=== PATIENT | female | born 1945 | race Caucasian/White ===

== ENCOUNTER 2017-04-17 16:56 | Inpatient (IN) | payer MEDICARE, BC ==
[2017-04-17 17:32] LABS: Hematocrit 38 % (35-47); Hemoglobin 12.9 g/dl (12.0-16.0); Mean Corpuscular HGB Conc 34 g/dl (31-36); Mean Corpuscular Hemoglobin 30 pg (27-31); Mean Corpuscular Volume 86 fL (80-97); Mean Platelet Volume 8 um3 (7.4-10.4); Red Blood Count 4.36 10^6/ul (4.0-5.4); Red Cell Distribution Width 13 % (10.5-15); White Blood Count 7.8 10^3/ul (3.5-10.8)
[2017-04-17] MEDS ORDERED: Ondansetron INJ* 2 MG/ML VIAL IV ONE (17:45)
--- NOTE | 2017-04-17 17:46 | RAD ---
Indication: Right-sided weakness. CT of the brain was performed without IV contrast. Comparison is made with previous exam dated March 30, 2016 Ventricular structures are midline. No midline shift is noted. The extra-axial spaces are unremarkable. Periventricular lucency consistent with chronic ischemic White matter change is noted. This is in similar extent to that seen on previous exam of March 30, 2016. No other high or low density lesion is identified. Mastoid air cells and paranasal sinuses are otherwise unremarkable. IMPRESSION: Chronic ischemic White matter change. No intracranial mass or hemorrhage is noted. No change since previous exam of March 30, 2016. Findings were discussed with Dr. Davis by telephone at 1742 hours.
[2017-04-17 17:48] LABS: Albumin 4.2 g/dL (3.2-5.2); BUN/Creatinine Ratio 19.3 (8-20); Calcium 9.4 mg/dL (8.6-10.3); EGFR African American 60.6 (>60); EGFR Non-African American 47.1 (>60); Globulin 2.9 g/dL (2-4); HDL Cholesterol 53.2 mg/dL; Potassium 3.2 mmol/L (3.5-5.0); Total Bilirubin 0.9 mg/dL (0.2-1.0); Total Protein 7.1 g/dL (6.4-8.9)
--- NOTE | 2017-04-17 17:58 | RAD ---
Indication: Neurologic symptoms. Single frontal view of the chest performed at 1740 hours was reviewed. Comparison is made with previous exam dated October 07, 2016 CT of the chest. No mediastinal shift is noted. Heart is of normal size and configuration. There is a mass in the left lung base which was previously identified on October 07, 2016. This has remained stable since August 17, 2008 and is likely a benign nodule. IMPRESSION: NO ACTIVE CARDIOPULMONARY DISEASE IS NOTED. NODULE IN THE LEFT BASE HAS BEEN PRESENT SINCE AUGUST 17, 2008 CT SCAN.
[2017-04-17] MEDS ORDERED: Aspirin TAB* 325 MG PO ONE (18:05)
--- NOTE | 2017-04-17 18:37 | ED ---
Bel Shahid Edward, scribed for Asif Davis MD on 04/17/17 at 1728 . Neurological HPI - HPI Summary HPI Summary: 71 y/o female BIBA c/o right facial droop, RUE and RLE weakness. Symptoms started at 10:00 this morning and have gradually gotten worse throughout the day , per nurse. Patient has difficulties moving her right leg at all. Patient states her neighbor noticed that the patient had difficulty speaking, but the patient was not aware of it herself. Denies vision changes. PMHx 2 CVA's. - History of Current Complaint Chief Complaint: EDNeurologicalDeficit Stated Complaint: RT SIDE WEAKNESS Time Seen by Provider: 04/17/17 17:12 Hx Obtained From: Patient Onset/Duration: Sudden Onset, Started hours ago - Started at 10:00 this morning Timing: Constant Neurological Deficit Location: Facial - right facial droop, RUE - Weakness, RLE - Difficulty moving RLE Pain Intensity: 0 Character: Motor Weakness - RLE, RUE Associated Signs and Symptoms: Positive: Impaired Speech - Per neighbor yes, although patient wasn't aware. Negative: Visual Changes - Allergy/Home Medications Allergies/Adverse Reactions: Allergies Allergy/AdvReac Type Severity Reaction Status Date / Time No Known Allergies Allergy Verified 03/30/16 15:49 Home Medications: Home Medications metFORMIN* [Glucophage 500 MG TAB *] 500 mg PO BID 04/17/17 [History Confirmed 04/17/17] PMH/Surg Hx/FS Hx/Imm Hx Previously Healthy: No Endocrine/Hematology History: Reports: Hx Diabetes Cardiovascular History: Reports: Hx Coronary Artery Disease, Hx Hypercholesterolemia, Hx Hypertension, Hx Syncope Denies: Hx Pacemaker/ICD GI History: Reports: Hx Gastroesophageal Reflux Disease Sensory History: Reports: Hx Cataracts - removed, Hx Contacts or Glasses Denies: Hx Legally Blind, Hx Macular Degeneration, Hx Deafness, Hx Hearing Aid, Hx Hearing Problem Opthamlomology History: Reports: Hx Cataracts - removed, Hx Contacts or Glasses Denies: Hx Legally Blind, Hx Macular Degeneration Neurological History: Reports: Hx Transient Ischemic Attacks (TIA) Denies: Hx Dementia, Hx Developmental Delay, Hx Headaches, Hx Migraine, Hx Nerve Disease, Hx Seizures Psychiatric History: Reports: Hx Depression Denies: Hx Panic Disorder - Surgical History Surgery Procedure, Year, and Place: CATARACT SURGERY, NECK SURGERY, APPENDECTOMY as child Hx Anesthesia Reactions: No - Immunization History Date of Tetanus Vaccine: Up to date Date of Influenza Vaccine: Fall 2012 Infectious Disease History: No Infectious Disease History: Denies: Hx Clostridium Difficile, Hx Hepatitis, Hx Human Immunodeficiency Virus (HIV), Hx of Known/Suspected MRSA, Hx Shingles, Hx Tuberculosis, History Other Infectious Disease, Traveled Outside the [place] in Last 30 Days - Family History Known Family History: Positive: Cardiac Disease, Other - cancer, GI bleed - Social History Alcohol Use: None Alcohol Amount: Quit 20 years ago Substance Use Type: Reports: None Smoking Status (MU): Former Smoker Type: Cigarettes Amount Used/How Often: 3-4 PPD Length of Time of Smoking/Using Tobacco: 20 years Have You Smoked in the Last Year: No Review of Systems Constitutional: Negative Eyes: Negative Negative: Blurred Vision ENT: Negative Cardiovascular: Negative Respiratory: Negative Gastrointestinal: Negative Genitourinary: Negative Musculoskeletal: Negative Skin: Negative Neurological: Other - right facial droop Positive: Weakness - RLE and RUE weakness, Slurred Speech - Neighbor said yes, patient wasn't aware Psychological: Normal All Other Systems Reviewed And Are Negative: Yes Physical Exam Triage Information Reviewed: Yes Vital Signs On Initial Exam: Initial Vitals Temp Pulse Resp BP Pulse Ox 97.3 F 85 28 224/191 98 04/17/17 17:15 04/17/17 17:15 04/17/17 17:15 04/17/17 17:15 04/17/17 17:15 Vital Signs Reviewed: Yes Appearance: Positive: Well-Appearing, No Pain Distress, Well-Nourished Skin: Positive: Warm, Skin Color Reflects Adequate Perfusion, Dry Head/Face: Positive: Normal Head/Face Inspection Eyes: Positive: Normal, EOMI, JESENIA ENT: Positive: Normal ENT inspection Neck: Positive: Supple, Nontender Respiratory/Lung Sounds: Positive: Clear to Auscultation, Breath Sounds Present Cardiovascular: Positive: RRR Abdomen Description: Positive: Nontender, Soft Bowel Sounds: Positive: Present Musculoskeletal: Positive: Normal, Strength/ROM Intact Neurological: Positive: Alert, Oriented to Person Place, Time, Facial Droop - Right facial droop, Pronator Drift Present - Right arm drift, Other - R leg effort against gravity, can't orange picker off stretcher. No sensation deficit Psychiatric: Positive: Normal, Affect/Mood Appropriate Diagnostics - Vital Signs Vital Signs Temp Pulse Resp BP Pulse Ox 04/17/17 17:15 97.3 F 85 28 224/191 98 - Laboratory Lab Results: Lab Results 04/17/17 04/17/17 04/17/17 Range/Units 17:21 17:21 17:21 WBC 7.8 (3.5-10.8) 10^3/ul RBC 4.36 (4.0-5.4) 10^6/ul Hgb 12.9 (12.0-16.0) g/dl Hct 38 (35-47) % MCV 86 (80-97) fL MCH 30 (27-31) pg MCHC 34 (31-36) g/dl RDW 13 (10.5-15) % Plt Count 243 (150-450) 10^3/ul MPV 8 (7.4-10.4) um3 Neut % (Auto) 71.8 (38-83) % Lymph % (Auto) 20.9 L (25-47) % Mcduffie % (Auto) 5.1 (1-9) % Eos % (Auto) 0.8 (0-6) % Baso % (Auto) 1.4 (0-2) % Absolute Neuts (auto) 5.6 (1.5-7.7) 10^3/ul Absolute Lymphs (auto) 1.6 (1.0-4.8) 10^3/ul Absolute Monos (auto) 0.4 (0-0.8) 10^3/ul Absolute Eos (auto) 0.1 (0-0.6) 10^3/ul Absolute Basos (auto) 0.1 (0-0.2) 10^3/ul Absolute Nucleated RBC 0 10^3/ul Nucleated RBC % 0 INR (Anticoag Therapy) 0.87 L (0.89-1.11) APTT 30.5 (26.0-36.3) seconds Sodium 133 (133-145) mmol/L Potassium 3.2 L (3.5-5.0) mmol/L Chloride 97 L (101-111) mmol/L Carbon Dioxide 23 (22-32) mmol/L Anion Gap 13 H (2-11) mmol/L BUN 22 (6-24) mg/dL Creatinine 1.14 H (0.51-0.95) mg/dL Est GFR ( Amer) 60.6 (>60) Est GFR (Non-Af Amer) 47.1 (>60) BUN/Creatinine Ratio 19.3 (8-20) Glucose 166 H (70-100) mg/dL Lactic Acid (0.5-2.0) mmol/L Calcium 9.4 (8.6-10.3) mg/dL Total Bilirubin 0.90 (0.2-1.0) mg/dL AST 16 (13-39) U/L ALT 13 (7-52) U/L Alkaline Phosphatase 50 (34-104) U/L Troponin I 0.00 (<0.04) ng/mL Total Protein 7.1 (6.4-8.9) g/dL Albumin 4.2 (3.2-5.2) g/dL Globulin 2.9 (2-4) g/dL Albumin/Globulin Ratio 1.4 (1-3) Triglycerides 119 mg/dL Cholesterol 150 mg/dL LDL Cholesterol 73 mg/dL HDL Cholesterol 53.2 mg/dL Blood Type Antibody Screen 04/17/17 04/17/17 Range/Units 17:21 17:21 WBC (3.5-10.8) 10^3/ul RBC (4.0-5.4) 10^6/ul Hgb (12.0-16.0) g/dl Hct (35-47) % MCV (80-97) fL MCH (27-31) pg MCHC (31-36) g/dl RDW (10.5-15) % Plt Count (150-450) 10^3/ul MPV (7.4-10.4) um3 Neut % (Auto) (38-83) % Lymph % (Auto) (25-47) % Mcduffie % (Auto) (1-9) % Eos % (Auto) (0-6) % Baso % (Auto) (0-2) % Absolute Neuts (auto) (1.5-7.7) 10^3/ul Absolute Lymphs (auto) (1.0-4.8) 10^3/ul Absolute Monos (auto) (0-0.8) 10^3/ul Absolute Eos (auto) (0-0.6) 10^3/ul Absolute Basos (auto) (0-0.2) 10^3/ul Absolute Nucleated RBC 10^3/ul Nucleated RBC % INR (Anticoag Therapy) (0.89-1.11) APTT (26.0-36.3) seconds Sodium (133-145) mmol/L Potassium (3.5-5.0) mmol/L Chloride (101-111) mmol/L Carbon Dioxide (22-32) mmol/L Anion Gap (2-11) mmol/L BUN (6-24) mg/dL Creatinine (0.51-0.95) mg/dL Est GFR ( Amer) (>60) Est GFR (Non-Af Amer) (>60) BUN/Creatinine Ratio (8-20) Glucose (70-100) mg/dL Lactic Acid 1.8 (0.5-2.0) mmol/L Calcium (8.6-10.3) mg/dL Total Bilirubin (0.2-1.0) mg/dL AST (13-39) U/L ALT (7-52) U/L Alkaline Phosphatase (34-104) U/L Troponin I (<0.04) ng/mL Total Protein (6.4-8.9) g/dL Albumin (3.2-5.2) g/dL Globulin (2-4) g/dL Albumin/Globulin Ratio (1-3) Triglycerides mg/dL Cholesterol mg/dL LDL Cholesterol mg/dL HDL Cholesterol mg/dL Blood Type A Positive Antibody Screen Negative Result Diagrams: 04/17/17 17:21 04/17/17 17:21 Lab Statement: Any lab studies that have been ordered have been reviewed, and results considered in the medical decision making process. - Radiology CHEST XRAY Xray Interpretation: No Acute Changes - NO ACTIVE CARDIOPULMONARY DISEASE IS NOTED. NODULE IN THE LEFT BASE HAS BEEN PRESENT SINCE AUGUST 17, 2008 CT SCAN. Radiology Interpretation Completed By: Radiologist - CT BRAIN CT CT Interpretation: Positive (See Comments) - Chronic ischemic White matter change. No intracranial mass or hemorrhage is noted. No change since previous exam of March 30, 2016. Findings were discussed with Dr. Davis by telephone at [address] Interpretation Completed By: Radiologist Course/Dx - Course Course Of Treatment: NO CRITICAL CARE TIME. DISCUSSED WITH DR AYALA, NEUROLOGY. ADMIT HOSPITALIST STABLE. - Diagnoses Provider Diagnoses: CVA (cerebral vascular accident) Discharge - Discharge Plan Condition: Stable Disposition: ADMITTED TO [facility] Referrals: Key Diaz MD [Primary Care Provider] - The documentation as recorded by the Bel gaffney Edward accurately reflects the service I personally performed and the decisions made by me, Asif Davis MD.
[2017-04-17] MEDS ORDERED: Dextrose 50% Syringe 50 ML* 25 GM/50 ML SYRINGE IV PUSH PRN (18:41)
[2017-04-17] MEDS ORDERED: Iodixanol* (CONTRAST) 320 MG/ML 100 ML SDV IV ONE (18:42)
[2017-04-17] MEDS ORDERED: Acetaminophen TAB* 325 MG PO PRN (18:46)
[2017-04-17] MEDS ORDERED: Potassium Chlor TAB* 20 MEQ TAB.ER PO ONE (18:49)
[2017-04-17] MEDS ORDERED: NS 0.9% 1000 ML* 1,000 ML IV SCH (19:00)
--- NOTE | 2017-04-17 20:02 | RAD ---
Indication: Stroke. Contrast: Administered 79.9 ml of VISAPAQUE 320 mgi/ml CTA of the neck and head was performed after IV contrast administration. Coronal and sagittal 3-D reconstructive images were obtained. The origins of the great vessels are unremarkable. The common carotid arteries bilaterally demonstrates no evidence of intimal wall thickening. Densely calcified right proximal internal carotid artery is noted. This is approximately 50%. Densely calcified left internal carotid artery is noted at its origin of approximately 60 %. The remainder of the internal carotid artery demonstrates no significant stenosis. No evidence of carotid artery dissection is noted. The intracranial portions of the internal carotid artery demonstrates calcification in the intracavernous portions. The anterior and middle cerebral arteries are unremarkable. No branch occlusion is identified. Basilar artery and vertebral arteries are unremarkable. No aneurysmal dilatation or branch occlusion is noted. Inferior thyroid lobes are unremarkable. Soft tissues of the neck are unremarkable. Scattered lymph nodes are noted. IMPRESSION: DENSELY CALCIFIED PLAQUE IS NOTED AT THE ORIGINS OF BOTH INTERNAL CAROTID ARTERIES. THE RIGHT INTERNAL CAROTID ARTERY DEMONSTRATES APPROXIMATE 50% STENOSIS. THE LEFT INTERNAL CAROTID ARTERY DEMONSTRATES APPROXIMATELY 60% STENOSIS. ATHEROSCLEROSIS IS NOTED OF THE INTRACAVERNOUS PORTIONS OF THE INTERNAL CAROTID ARTERIES. NO BRANCH OCCLUSION OR ANEURYSMAL DILATATION IS NOTED.
[2017-04-17] MEDS ORDERED: LORazepam INJ* 2 MG/ML 1 ML VIAL IV PUSH ONE (20:39)
--- NOTE | 2017-04-17 22:03 | RAD ---
Indication: Stroke, right-sided weakness. Image sequences: Sagittal and axial T1, axial T2, FLAIR, diffusion and susceptibility weighted images of the brain were obtained. Ventricular structures are midline. No midline shift is noted. Central and cortical atrophy is noted. Periventricular signal abnormalities consistent with chronic ischemic White matter change is noted. There is a focal area of restriction of diffusion in the posterior limb of the left internal capsule consistent with lacunar infarct. Motion artifact degrades the images. Fluid is noted in the mastoid air cells on the left. Mild gliosis is noted in the pontine region. IMPRESSION: Acute lacunar infarct involving the posterior limb of left internal capsule. Chronic ischemic White matter change is noted. Central and cortical atrophy. Motion artifact degrades the images.
[2017-04-17] MEDS: Atorvastatin* 40 MG TAB PO SCH (23:06)
[2017-04-17] MEDS: Insulin LISPRO* 1 UNITS UNIT SUBCUT SCH (23:07)
[2017-04-17] MEDS: Heparin VIAL(*) 5000 UNITS/ML VIAL (FIVE THOUSAND) SUBCUT SCH (23:24)
--- NOTE | 2017-04-18 02:25 | HP ---
CC: Dr. Ariana Sidhu; Dr. Acuna * HISTORY AND PHYSICAL: DATE OF ADMISSION: 04/17/17 PRIMARY CARE PROVIDER: Dr. Ariana Sidhu from [place]. CHIEF COMPLAINT: Right-sided weakness. HISTORY OF PRESENT ILLNESS: Ms. Girard is a 71-year-old female with history of dyslipidemia, diabetes, who presented to the hospital complaining of right- sided weakness that occurred at approximately 10 a.m. in the morning. The patient arrived to our ER at approximately 5 p.m. with right-sided weakness. She appears to have had an ischemic left hemispheric stroke and she is going to be admitted with a diagnosis of CVA to telemetry monitored floor. PAST MEDICAL HISTORY: Include: 1. History of TIA in March 2016, when she was advised to take aspirin and signed out against medical advice. At this point, she did not continue to take aspirin. 2. History of appendectomy. 3. History of cataract surgery. 4. Hypertension. 5. Diabetes. 6. Dyslipidemia. 7. Coronary artery disease. 8. Status post laparoscopic cholecystectomy for acute cholecystitis in September of 2016. MEDICATIONS: Include: 1. Metformin 500 mg b.i.d. 2. Effexor XR 75 mg daily. 3. Omeprazole 20 mg daily. 4. Lisinopril with hydrochlorothiazide 1 tablet daily. 5. Atorvastatin 40 mg daily. 6. Aspirin, although it is outpatient medication and she is not taking. 7. Acetaminophen on a p.r.n. basis. ALLERGIES: No known drug allergies. FAMILY HISTORY: Positive for mother who at the age of 49 secondary to GI bleed. SOCIAL HISTORY: The patient has a history of former alcoholism and tobacco abuse and quit both over 20 years ago. She denies any drug use. She is retired and lives alone. She is fully independent with ADLs and ambulates without any problems. Her friend, Cici Kelley, from [place], [place], with phone number is her surrogate. REVIEW OF SYSTEMS: Please see history of present illness. The patient stated that she had been in her usual state of health and she woke up today in the morning feeling fine. She stated that she fed the dogs and approximately 10 a.m., she developed right-sided weakness. She stated that she felt that she had to "drag her right leg." She denies any headache or double vision. I am unsure why she came to the hospital so late in the day. The patient stated that she took 2 baby aspirins prior to arrival to the hospital, but usually she does not use aspirin on a daily basis. All the remaining 14 systems were reviewed with the patient and were otherwise negative. PHYSICAL EXAMINATION GENERAL: The patient is a pleasant 71-year-old female who is in no acute distress. Alert, awake, and oriented x3. VITAL SIGNS: Blood pressure of 187/96, heart rate of 73 and regular, respiratory rate of 26, oxygen saturation 90% on room air, temperature of 97.3. HEENT: Head: Atraumatic, normocephalic. Eyes: Pupils equal, reactive to light and accommodation. Oropharynx clear. Mucosa moist. NECK: Supple. No JVD, no bruit bilaterally. RESPIRATORY: Clear to auscultation bilaterally. CARDIOVASCULAR: Regular rate and rhythm. No murmur. ABDOMEN: Soft, nontender. Bowel sounds present in all 4 quadrants. EXTREMITIES: There is no edema. Pulses are +2 bilaterally. No clubbing or cyanosis. NEUROLOGIC: The patient has flattening of right nasolabial fold. Her speech is clear. Otherwise, cranial nerves are unremarkable. Motor strength is diminished in the right lower and right upper extremities. The patient had significant right pronator drift. She also has right leg weakness. Motor strength in the left upper and left lower extremities is 5/5. The right upper extremity muscle strength is at 4+/5 and it is distally weaker and the right lower extremity is also 4/5, weaker distally. The patient is able to raise her leg off bed by approximately 10 degrees only for approximately 3 seconds before falling down. There are no sensation deficits. SKIN: No ecchymotic areas or rashes noted. DIAGNOSTIC STUDIES/LAB DATA: Sodium of 132, potassium 3.2, chloride 97, carbon dioxide 23, BUN 22, creatinine 1.14. Liver functions were unremarkable. LDL cholesterol 73. CBC: White blood cell count of 7.8, hemoglobin of 12.9, hematocrit of 38, and platelets of 243. The patient's EKG showed normal sinus rhythm with a heart rate of 75 beats per minute with possibility of old inferior infarct. CT of the brain, impression: "Chronic ischemic white matter change. No intracranial mass or hemorrhage is noted. No change since previous exam of 02/09." Portable chest x-ray, impression: "No active cardiopulmonary disease noted. Nodule in the left base has been present since 08/17/08 CT exam." ASSESSMENT AND PLAN: A 71-year-old female, who has a history of transient ischemic attack in 2016 and was supposed to be on aspirin, but she had not been taking regularly. Now, she presents with right-sided weakness that lasted for several hours prior to her observation to the ED. 1. Ischemic cerebrovascular accident. The patient most likely had ischemic cerebrovascular accident. She has mild right-sided facial droop and right- sided weakness. She is going to be admitted to telemetry monitored bed with neuro checks every 2 hours. Her aspirin is going to be started. Physical Therapy and Occupational Therapy are going to evaluate the patient. Nursing dysphagia screen is already ordered. An MRI of the brain is going to be obtained today as well as CT angiogram of the head and neck. Transthoracic echocardiogram with bowel studies is going to be ordered. Dr. Acuna is going to be asked to see the patient in consult. 2. In regards to patient's hypertension, currently, the patient's systolic pressures are in the 180's. At this point, we will treat as permissive hypertension and will stop the patient's Zestoretic. 3. In regards to dyslipidemia, the patient's lipid profile shows LDL of 73. At this point, we will continue her atorvastatin 40 mg daily. 4. In regards to the patient's diabetes, hemoglobin A1c is going to be obtained. The patient is going to be placed on a sliding scale and metformin is going to be held while in the hospital. 5. For DVT prophylaxis, the patient is at moderate risk and she is going to be placed on heparin subcutaneously. 6. The patient has history of chronic kidney disease, stage 2 to 3. Her creatinine is basically at baseline, but due to her acute ischemic infarct, I will place her on gentle intravenous hydration for total of 1 L. 7. The patient's code status is full and her surrogate is her friend, Cici, as mentioned above. TIME SPENT: Approximately 65 minutes was spent on admission of this patient, more than half that time was spent [id number] with the patient during the interview and physical exam. [id number]/[facility] #: [id number] [facility]OSPITALFelipa
[2017-04-18 05:17] LABS: BUN/Creatinine Ratio 15.4 (8-20); EGFR African American 55.5 (>60); EGFR Non-African American 43.2 (>60); Potassium 3.5 mmol/L (3.5-5.0)
[2017-04-18] MEDS: Heparin VIAL(*) 5000 UNITS/ML VIAL (FIVE THOUSAND) SUBCUT SCH ×3 (06:25→20:57)
[2017-04-18] MEDS: Insulin LISPRO* 1 UNITS UNIT SUBCUT SCH ×4 (08:24→20:54)
[2017-04-18] MEDS: Venlafaxine EXT RELEASE CAP* 75 MG PO SCH (08:27)
[2017-04-18] MEDS: Omeprazole CAP* 20 MG PO SCH (08:27)
[2017-04-18] MEDS: Aspirin Low Dose CHEW TAB* 81 MG PO SCH (08:27)
[2017-04-18 08:33] LABS: Urine Bilirubin Negative (Negative); Urine Glucose Negative (Negative); Urine Nitrite Negative (Negative)
--- NOTE | 2017-04-18 13:39 | ECHO ---
Patient: GUERLINE ROJO [facility] Rec#: [id number] : 1945 Date: 04/18/2017 Age: 71y Height: 172.72 cm / 68.0 in Weight: 61.23 kg / 135.0 lbs Sex: F BSA: 1.73 Room#: [facility] Admit Date#: 04/17/2017 Type: Inpatient Referring: Judit Cruz MD Reading: Chiki Britt MD Board Liner Operator: Kellie Arce RDCS CC: Key Diaz MD Transthoracic Echocardiogram Indication: CVA BP: 149/78 HR: 74 Rhythm: NSR Indications Cerebrovascular Disease Findings History: TIA '16, HTN, DM, CAD, HLD, former smoker. Technical Comments: The study quality is fair. The study is technically limited due to poor parasternal windows. Left Ventricle: The left ventricular chamber size is normal. There is increased basal septal hypertrophy noted without evidence of an increased gradient across the left ventricular outflow tract. Global left ventricular wall motion and contractility are within normal limits. There is normal left ventricular systolic function. The estimated ejection fraction is 60-65%. Abnormal left ventricular diastolic filling is observed, consistent with impaired relaxation. Left Atrium: The left atrium is mildly dilated. Right Ventricle: Moderator Band present. The right ventricular cavity size is normal. The right ventricular global systolic function is normal. Right Atrium: The right atrium is mildly dilated. A patent foramen ovale is visualized. which appears to be small in size. A patent foramen ovale is demonstrated by color Doppler and agitated contrast. There is evidence of an atrial septal aneurysm. Aortic Valve: The aortic valve structure is not well visualized. The aortic valve is trileaflet. The aortic valve leaflets are mildly thickened. There is no evidence of aortic regurgitation. There is no evidence of aortic stenosis. Mitral Valve: There is mitral annular calcification. The mitral valve leaflets are moderately thickened. There is a trace of mitral regurgitation. Tricuspid Valve: The tricuspid valve leaflets are mildly thickened. There is trace tricuspid regurgitation. No pulmonary hypertension is noted. Pulmonic Valve: The pulmonic valve appears normal. There is no evidence of pulmonic regurgitation. There is no pulmonic stenosis. Pericardium: There is no significant pericardial effusion. Aorta: There is mild dilatation of the ascending aorta. There is no dilatation of the aortic arch. There is no dilation of the aortic root. Pulmonary Artery: The main pulmonary artery is not well visualized. Venous: The inferior vena cava appears normal in size. There is a greater than 50% respiratory change in the inferior vena cava dimension. Contrast: Normal saline was used as contrast for the bubble study. Intravenous contrast was used to help determine presence of intracardiac shunting. Images 1 and 2. Conclusions There is normal left ventricular systolic function. The estimated ejection fraction is 60-65%. Global left ventricular wall motion and contractility are within normal limits. The left ventricular chamber size is normal. Abnormal left ventricular diastolic filling is observed, consistent with impaired relaxation. The left atrium is mildly dilated. The right atrium is mildly dilated. Functionally benign heart valves. There is mild dilatation of the ascending aorta. A small sized patent foramen ovale is visualized. Measurements Name Value Normal Range RVIDd (AP) 2D 2.9 cm (0.9 - 2.6) RVDdMajor (2D) 2.9 cm (2.2 - 4.4) RAd ISD 4CH 5.1 cm (3.4 - 4.9) RA (A4C)W 2.9 cm (2.9 - 4.6) IVSd (2D) 1.1 cm (0.6 - 1) LVPWd (2D) 1.1 cm (0.6 - 1) LVIDd (2D) 4.4 cm (3.6 - 5.4) LVIDs (2D) 3 cm - LV FS (2D) 32 % (25 - 45) Aortic Annulus 2 cm (1.4 - 2.6) Ao root diameter (2D) 2.9 cm (2.1 - 3.5) Ascending Ao 3.5 cm (2.1 - 3.4) Aortic arch 2.9 cm (1.8 - 3.4) LA dimension (AP) 2D 3.2 cm (2.3 - 3.8) LAd ISD 4CH 5.4 cm (2.9 - 5.3) LA ISD 4CH W 4.6 cm (2.5 - 4.5) Name Value Normal Range LA ESV SP 4CH (A/L) 63 ml - LA ESV SP 2CH (A/L) 58 ml - LA ESV BP (A/L) 62 ml - LA ESV BP (A/L) index 36 ml/m2 - LA ESV SP 4CH (MOD) 57 ml - LA ESV SP 2CH (MOD) 52 ml - Name Value Normal Range MV E-wave Vmax 0.6 m/sec - MV deceleration time 189 msec - MV A-wave Vmax 1.03 m/sec - MV E:A ratio 0.6 ratio - LV septal e' Vmax 0.05 m/sec - LV lateral e' Vmax 0.07 m/sec - LV E:e' septal ratio 12 ratio - LV E:e' lateral ratio 8.57 ratio - Name Value Normal Range AV Vmax 1.5 m/sec - AV VTI 30 cm - AV peak gradient 9.07 mmHg - AV mean gradient 4.28 mmHg - LVOT Vmax 1.02 m/sec - LVOT VTI 20.03 cm - LVOT peak gradient 4.18 mmHg - LVOT mean gradient 2.38 mmHg - ADITYA Vmax 0.51 m/sec - Name Value Normal Range TR Vmax 2.45 m/sec - TR peak gradient 24 mmHg - RAP 3 mmHg - RVSP 27 mmHg - IVC diameter 1.9 cm - Name Value Normal Range PV Vmax 0.86 m/sec - PV peak gradient 2.96 mmHg -
--- NOTE | 2017-04-18 15:39 | PN ---
Subjective Date of Service: 04/18/17 Interval History: Has no complaints today. Denies weakness. No LEYVA, blurry vision, CP/SOB Objective Active Medications: Acetaminophen (Tylenol Tab*) 650 mg PO Q4H PRN PRN Reason: FEVER/PAIN Aspirin (Aspirin Low Dose Tab*) 81 mg PO DAILY [facility] Last Admin: 04/18/17 08:27 Dose: 81 mg Atorvastatin Calcium (Lipitor*) 40 mg PO 2100 [facility] Last Admin: 04/17/17 23:06 Dose: 40 mg Dextrose (D50w Syringe 50 Ml*) 12.5 gm IV PUSH .FOR FS < 60 - SS PRN PRN Reason: FS < 60 Heparin Sodium (Porcine) (Heparin Vial(*)) 5,000 units SUBCUT Q8HR [facility] Last Admin: 04/18/17 13:59 Dose: 5,000 units Sodium Chloride (Ns 0.9% 1000 Ml*) 1,000 mls @ 125 mls/hr IV PER RATE [facility] Last Admin: 04/17/17 23:14 Dose: 125 mls/hr Insulin Human Lispro (Humalog*) 0 units SUBCUT ACHS [facility] PRN Reason: Protocol Last Admin: 04/18/17 12:25 Dose: 1 units Metformin HCl (Glucophage*) 1,000 mg PO DAILY [facility] Omeprazole (Prilosec Cap*) 20 mg PO DAILY@0730 [facility] Last Admin: 04/18/17 08:27 Dose: 20 mg Venlafaxine HCl (Effexor Xr Cap*) 75 mg PO DAILY WITH MEAL [facility] Last Admin: 04/18/17 08:27 Dose: 75 mg Vital Signs 04/18/17 11:06 Temperature 97.9 F Pulse Rate 70 Respiratory 16 Rate Blood Pressure 153/83 (mmHg) O2 Sat by Pulse 100 Oximetry Oxygen Devices in Use Now: None Appearance: NAD, sitting in chair, Eyes: No Scleral Icterus, PERRLA Ears/Nose/Mouth/Throat: Clear Oropharnyx, Mucous Membranes Moist Neck: NL Appearance and Movements; NL JVP, Trachea Midline Respiratory: Symmetrical Chest Expansion and Respiratory Effort Cardiovascular: NL Sounds; No Murmurs; No JVD, RRR Abdominal: NL Sounds; No Tenderness; No Distention, No Hepatosplenomegaly Lymphatic: No Cervical Adenopathy Extremities: No Edema, No Clubbing, Cyanosis Neurological: Alert and Oriented x 3, - - 5/5 strength throughout, CN2-12 intact , sensation intact Result Diagrams: 04/17/17 17:21 04/18/17 04:32 Additional Lab and Data: Lab Results 04/17/17 04/17/17 04/17/17 Range/Units 17:21 17:21 17:21 WBC 7.8 (3.5-10.8) 10^3/ul RBC 4.36 (4.0-5.4) 10^6/ul Hgb 12.9 (12.0-16.0) g/dl Hct 38 (35-47) % MCV 86 (80-97) fL MCH 30 (27-31) pg MCHC 34 (31-36) g/dl RDW 13 (10.5-15) % Plt Count 243 (150-450) 10^3/ul MPV 8 (7.4-10.4) um3 Neut % (Auto) 71.8 (38-83) % Lymph % (Auto) 20.9 L (25-47) % [place] % (Auto) 5.1 (1-9) % Eos % (Auto) 0.8 (0-6) % Baso % (Auto) 1.4 (0-2) % Absolute Neuts (auto) 5.6 (1.5-7.7) 10^3/ul Absolute Lymphs (auto) 1.6 (1.0-4.8) 10^3/ul Absolute Monos (auto) 0.4 (0-0.8) 10^3/ul Absolute Eos (auto) 0.1 (0-0.6) 10^3/ul Absolute Basos (auto) 0.1 (0-0.2) 10^3/ul Absolute Nucleated RBC 0 10^3/ul Nucleated RBC % 0 INR (Anticoag Therapy) 0.87 L (0.89-1.11) APTT 30.5 (26.0-36.3) seconds Sodium 133 (133-145) mmol/L Potassium 3.2 L (3.5-5.0) mmol/L Chloride 97 L (101-111) mmol/L Carbon Dioxide 23 (22-32) mmol/L Anion Gap 13 H (2-11) mmol/L BUN 22 (6-24) mg/dL Creatinine 1.14 H (0.51-0.95) mg/dL Est GFR ( Amer) 60.6 (>60) Est GFR (Non-Af Amer) 47.1 (>60) BUN/Creatinine Ratio 19.3 (8-20) Glucose 166 H (70-100) mg/dL Lactic Acid (0.5-2.0) mmol/L Calcium 9.4 (8.6-10.3) mg/dL Total Bilirubin 0.90 (0.2-1.0) mg/dL AST 16 (13-39) U/L ALT 13 (7-52) U/L Alkaline Phosphatase 50 (34-104) U/L Troponin I 0.00 (<0.04) ng/mL Total Protein 7.1 (6.4-8.9) g/dL Albumin 4.2 (3.2-5.2) g/dL Globulin 2.9 (2-4) g/dL Albumin/Globulin Ratio 1.4 (1-3) Triglycerides 119 mg/dL Cholesterol 150 mg/dL LDL Cholesterol 73 mg/dL HDL Cholesterol 53.2 mg/dL Blood Type Antibody Screen 04/17/17 04/17/17 Range/Units 17:21 17:21 WBC (3.5-10.8) 10^3/ul RBC (4.0-5.4) 10^6/ul Hgb (12.0-16.0) g/dl Hct (35-47) % MCV (80-97) fL MCH (27-31) pg MCHC (31-36) g/dl RDW (10.5-15) % Plt Count (150-450) 10^3/ul MPV (7.4-10.4) um3 Neut % (Auto) (38-83) % Lymph % (Auto) (25-47) % [place] % (Auto) (1-9) % Eos % (Auto) (0-6) % Baso % (Auto) (0-2) % Absolute Neuts (auto) (1.5-7.7) 10^3/ul Absolute Lymphs (auto) (1.0-4.8) 10^3/ul Absolute Monos (auto) (0-0.8) 10^3/ul Absolute Eos (auto) (0-0.6) 10^3/ul Absolute Basos (auto) (0-0.2) 10^3/ul Absolute Nucleated RBC 10^3/ul Nucleated RBC % INR (Anticoag Therapy) (0.89-1.11) APTT (26.0-36.3) seconds Sodium (133-145) mmol/L Potassium (3.5-5.0) mmol/L Chloride (101-111) mmol/L Carbon Dioxide (22-32) mmol/L Anion Gap (2-11) mmol/L BUN (6-24) mg/dL Creatinine (0.51-0.95) mg/dL Est GFR ( Amer) (>60) Est GFR (Non-Af Amer) (>60) BUN/Creatinine Ratio (8-20) Glucose (70-100) mg/dL Lactic Acid 1.8 (0.5-2.0) mmol/L Calcium (8.6-10.3) mg/dL Total Bilirubin (0.2-1.0) mg/dL AST (13-39) U/L ALT (7-52) U/L Alkaline Phosphatase (34-104) U/L Troponin I (<0.04) ng/mL Total Protein (6.4-8.9) g/dL Albumin (3.2-5.2) g/dL Globulin (2-4) g/dL Albumin/Globulin Ratio (1-3) Triglycerides mg/dL Cholesterol mg/dL LDL Cholesterol mg/dL HDL Cholesterol mg/dL Blood Type A Positive Antibody Screen Negative Assess/Plan/Problems-Billing Assessment: 71 F p/w right sided weakness found with left internal capsule CVA - Patient Problems (1) CVA (cerebral vascular accident) Comment: Lacunar, suspect in setting of HTN especially based on presenting BP Pt confirmed she was not taking ASA Start ASA TTE pending Secondary risk factor modification - -HTN-permissive today -DM2- increase metformin to 1000mg daily -HLD-continue statin -summer camp counselor exercise (2) Chronic kidney disease Comment: NS trend (3) HLD (hyperlipidemia) Comment: lipitor 40mg (4) HTN (hypertension) Comment: permissive HTN until tomorrow (5) Type 2 diabetes mellitus Comment: Reports history of hypoglycemia after which meds were decreased increase metformin from 500 to 100mg daily. c/w ISS (6) DVT prophylaxis Comment: SQ Heparin
--- NOTE | 2017-04-18 16:24 | CONS ---
NEUROLOGY CONSULTATION: DATE OF CONSULT: 04/18/17 REFERRING PHYSICIAN: Judit Cruz MD REASON FOR CONSULT: Stroke. HISTORY OF PRESENT ILLNESS: Annika Girard is a 71-year-old woman with history of diabetes, hypertension, and TIA in the past who presented subacutely yesterday to the emergency department with right-sided weakness that had started that morning. She reports that around 10 a.m., she developed right leg weakness and did not think much of it because she did not have a headache. Later in the afternoon, she also developed right arm weakness and her leg became so weak that she needed to hold on to the wall to get into her bedroom. She then presented to the emergency department, was noted to have right facial weakness as well. She thinks her speech may have been slurred, but this was told to her by an observer and she did not notice it herself. She has previously had a TIA, which she says presented with difficulty speaking and a headache. Since she arrived out of the 4- 1/2 hour window, she was not considered a candidate for TPA. She was admitted to the hospital for stroke workup and her MRI scan showed a small lacunar infarction in the posterior limb of the left internal capsule. Today, Mrs. Girard is essentially asymptomatic. She reports her leg and arm are working much better and she notices no facial weakness. She has been ambulating around the room without difficulty. There has been some confusion as to whether she takes aspirin at home, but she indicates to me that she was not taking aspirin and has only been taking it since she has been admitted here. She reports that she eats ice cream on a nearly nightly basis. She does not routinely check her blood sugars at home, though her family physician has advised that she do so. She also does not check her blood pressure outside the healthcare setting. PAST MEDICAL HISTORY: 1. TIA in March 2016. 2. Hypertension. 3. Diabetes. 4. Hyperlipidemia. 5. Coronary artery disease. 6. Appendectomy. 7. Cataract surgery. 8. Laparoscopic cholecystectomy. HOME MEDICATIONS: 1. Tylenol 650 mg q.4 hours p.r.n. 2. Metformin 500 mg b.i.d. 3. Lisinopril/hydrochlorothiazide 20/12.5 mg daily. 4. Atorvastatin 40 mg daily. 5. Venlafaxine 75 mg daily. 6. Omeprazole 20 mg daily. ALLERGIES: No known drug allergies. FAMILY HISTORY: Mother at age 49 of a GI bleed. SOCIAL HISTORY: She is a former alcoholic and used to smoke, but quit both over 20 years ago. She lives alone. REVIEW OF SYSTEMS: As per the HPI, otherwise negative. PHYSICAL EXAM: Vital Signs: Temperature 97.9, blood pressure 153/83, heart rate 70, oxygen saturation 100% on room air. I note that when she was first in the ER on arrival, her blood pressure was measured at 224/191. Review of telemetry shows no evidence of atrial fibrillation. On general examination, she is a very pleasant woman in no acute distress. Her heart is in a regular rate and rhythm. There are no carotid bruits. Lungs are clear to auscultation bilaterally. On neurologic examination, she is fully awake, alert, and oriented. Her speech is fluent without dysarthria or aphasia. Pupils are equal, round, and reactive from 3 to 2 mm bilaterally. Versions are full without nystagmus. Muller are full to confrontation. Facial sensation and musculature is full and symmetric. Hearing is intact to finger snapping bilaterally. The palate elevates symmetrically and the tongue is midline. Shoulder shrug is full and symmetric. On motor examination, she has a very slight pronator drift of the right arm. On confrontational testing, she has full strength in all 4 extremities. Sensation is intact to light touch and temperature in the upper and lower extremities. There is no ataxia on finger-to- nose testing. Reflexes are 2+ throughout with an upgoing toe on the right. She ambulates with a narrow based steady gait. DIAGNOSTIC STUDIES/LAB DATA: CBC was unremarkable. CMP was notable for creatinine of 1.14, which is 1.23 today. Glucose has been elevated and was 113 at 4:30 this morning. A1c is 8.4%. Cholesterol study showed triglycerides of 119, total cholesterol 150, LDL 73, and HDL of 53.2. CT of the brain is personally reviewed and shows changes consistent with chronic small vessel ischemic white matter disease without any obvious acute process. CT angiogram of the head and neck was personally reviewed and demonstrated atherosclerotic calcifications at the carotid bifurcations bilaterally, which yields approximately 50% stenosis on the right and 60% on the left. In addition , she has atherosclerotic calcifications of the intracranial carotid arteries, in particular the siphons. As mentioned, MRI scan showed a small diffusion abnormality in the posterior limb of the left internal capsule. Otherwise, there is bihemispheric small vessel ischemic white matter change. IMPRESSION: Annika Girard is a 71-year-old woman with multiple vascular risk factors, most notably diabetes and hypertension who presented with a left lacunar infarction. She has made a good recovery from this overnight. I discussed with her that she needs to take a baby aspirin going forward to reduce her risk of recurrent stroke. Furthermore, she needs improved blood pressure control and also improved glucose control. We discussed checking her blood pressure periodically when she is out and about such as at the pharmacy or at the grocery store. We also discussed some dietary changes and she is going to discontinue her nightly ice cream. Her carotid arteries show some disease bilaterally, but not at the point where she would require any surgical intervention at this point. However, as an outpatient, this will need to be monitored periodically. I note that her transthoracic echocardiogram is still pending. As long as there are no unusual findings on this, she could be discharged from the hospital later today and I would like to see her in followup in my office in approximately 2 to 3 months. I also educated her on the fact that most strokes are not painful, and are not associated with headache , so if she has focal neurological deficits again in the future, she was advised to call 911 immediately. [id number]/[facility] #: [id number] GIO
[2017-04-18] MEDS: Atorvastatin* 40 MG TAB PO SCH (20:10)
[2017-04-18] MEDS ORDERED: CMCS: Melatonin (NF) 3 MG TAB PO PRN (23:03)
[2017-04-19] MEDS ORDERED: hydrALAZINE IV* 20 MG/ML VIAL IV PRN (04:41)
[2017-04-19] MEDS: Heparin VIAL(*) 5000 UNITS/ML VIAL (FIVE THOUSAND) SUBCUT SCH (05:32)
[2017-04-19 06:26] LABS: BUN/Creatinine Ratio 13.3 (8-20); EGFR African American 61.2 (>60); EGFR Non-African American 47.6 (>60); Potassium 3.2 mmol/L (3.5-5.0)
[2017-04-19] MEDS: Omeprazole CAP* 20 MG PO SCH (07:40)
[2017-04-19] MEDS ORDERED: metFORMIN* 1,000 MG TAB PO SCH (08:30)
[2017-04-19] MEDS: Aspirin Low Dose CHEW TAB* 81 MG PO SCH (08:41)
[2017-04-19] MEDS: Insulin LISPRO* 1 UNITS UNIT SUBCUT SCH ×2 (08:41→14:00)
[2017-04-19] MEDS: Venlafaxine EXT RELEASE CAP* 75 MG PO SCH (08:42)
[2017-04-19] MEDS ORDERED: Hydrochlorothiazide TAB* 25 MG PO SCH (09:00)
[2017-04-19] MEDS ORDERED: Lisinopril TAB* 10 MG PO SCH (09:00)
[2017-04-19 14:10] VITALS: BP 148/92
--- NOTE | 2017-04-20 03:46 | DS ---
DISCHARGE SUMMARY: DATE OF ADMISSION: 04/17/17 DATE OF DISCHARGE: 04/19/17 PRIMARY DIAGNOSES: 1. Left internal capsule. 2. Coronary vascular accident. SECONDARY DIAGNOSES: Include: 1. Hypertension. 2. Hyperlipidemia. 3. Type 2 diabetes, uncontrolled. 4. History of coronary artery disease. MEDICATIONS ON DISCHARGE: 1. Acetaminophen 650 mg every 4 hours as needed for pain or fever. 2. Lipitor 40 mg in the evening. 3. Venlafaxine extended release 75 mg daily. 4. Prilosec 20 mg daily. 5. Metformin 1000 mg daily. 6. Lisinopril 20 mg daily. 7. Hydrochlorothiazide 25 mg daily. 8. Please note increased dose aspirin 81 mg daily. PERTINENT IMAGING PERFORMED DURING HOSPITAL STAY: Brain MRI. Impression: Acute lacunar infarct involving the posterior limb of the internal capsule. Head CTA: Densely calcified plaque is noted at the origins of both internal carotid arteries. The right internal carotid artery demonstrates approximately 50% stenosis. The left internal carotid artery demonstrates approximately 60% stenosis. PERTINENT LABORATORY DATA: Hemoglobin A1c 8.4%, total cholesterol 150, LDL 73, HDL 53. HISTORY OF PRESENT ILLNESS AND HOSPITAL COURSE: This is a 71-year-old female with past medical history as outlined in the history of present illness on the day of admission including uncontrolled hypertension and diabetes, dyslipidemia , presented to the hospital with right-sided weakness, found to have acute left lacunar infarct of internal capsule. The patient's blood pressure on presentation to the hospital was 224/191, which was repeated and deemed accurate. The patient was admitted to the hospital, monitored on telemetry without any abnormal arrhythmias. Her symptoms completely resolved. systolic in the setting of uncontrolled hypertension. The patient notes she just take her blood pressure medication; however, frequently misses the evening dose of her metformin. Her metformin was changed from 500 mg twice daily to be 1000 mg in the morning to improve administration. Further consideration to doubling the dose of 1000 mg twice daily can be made. Additionally, she is allowed permissive hypertension for the first 48 hours. Prior to discharge, her lisinopril and hydrochlorothiazide were restarted and she still remains with systolics in the 150s to 160s. For this reason, her hydrochlorothiazide dose was doubled from 12.5 to 25. Further consideration to increasing her lisinopril should be made at followup. The patient was previously prescribed an aspirin. However, indicates she was not taking this medication prior to her stroke. For this reason, she was restarted on a baby aspirin. She was seen in consultation from the neurological services. Modified Rowan 0. At followup, please: 1. Adjust blood pressure medications to achieve optimal control. 2. Adjust diabetic medications to achieve optimal control. 3. Encourage diet and exercise. The patient indicates that she plans on walking much more after hospital stay as well as discontinuing soda. 4. Please ensure the patient continues to take aspirin. 5. No other specific labs or vitals that need followup. Reasons to return to the hospital including, but not limited to, recurrent or worsening symptoms including weakness, numbness, paresthesias, chest pain, shortness of breath, nausea, vomiting, lightheadedness, or loss of consciousness , near loss of consciousness, headache, changes in vision, inability to obtain or tolerate medications were discussed with the patient. She acknowledged understanding. TIME SPENT: Greater than 45 minutes was spent on discharge of this patient, greater than half the time was spent [id number] with the patient. [id number]/[facility] #: [id number] GIO
== END 2017-04-19 14:30 | disposition home or self-care (01) | DRG 66 ==
LOC: ED 16:56 → MEDTELE 18:00 → OBSVTOIN 04-18 09:00
PROVIDERS: ADMIT Internal Medicine; ATTEND Internal Medicine
DX: I63.232 Cerebral infarction due to unspecified occlusion or stenosis of left carotid arteries (principal); E11.22 Type 2 diabetes mellitus with diabetic chronic kidney disease; I13.10 Hypertensive heart and chronic kidney disease without heart failure, with stage 1 through stage 4 chronic kidney disease, or unspecified chronic kidney disease; N18.3 Chronic kidney disease, stage 3 (moderate); I25.10 Atherosclerotic heart disease of native coronary artery without angina pectoris; E11.65 Type 2 diabetes mellitus with hyperglycemia; E78.5 Hyperlipidemia, unspecified; Z79.84 Long term (current) use of oral hypoglycemic drugs; Z79.82 Long term (current) use of aspirin; Z79.1 Long term (current) use of non-steroidal anti-inflammatories (NSAID); Z79.899 Other long term (current) drug therapy; Z83.79 Family history of other diseases of the digestive system; F10.21 Alcohol dependence, in remission; Z87.891 Personal history of nicotine dependence
CPT/HCPCS: 36415; 70450; 70496; 70498; 70551; 71010; 80048; 80053; 80061; 81003; 83036; 83605; 84484; 85025; 85610; 85730; 86850; 86900; 86901; 93005; 93306; 96374; 99284; A9270-GY; G0378; J1644; J2060; J2405; Q9967

== ENCOUNTER 2018-05-01 12:33 | Observation (INO) | payer BC, MEDICARE, OTHER ==
[2018-05-01 13:53] LABS: ABS Basophils 0.1 10^3/ul (0-0.2); ABS Eosinophils 0.1 10^3/ul (0-0.6); ABS Lymphocytes 1.4 10^3/ul (1.0-4.8); ABS Monocytes 0.3 10^3/ul (0-0.8); ABS Neutrophils 5.1 10^3/ul (1.5-7.7); ABS Nucleated RBC 0 10^3/ul; Eosinophil % 0.8 % (0-6); Hematocrit 35 % (35-47); Hemoglobin 11.8 g/dl (12.0-16.0); Lymphocyte % 20.3 % (25-47); Mean Corpuscular HGB Conc 34 g/dl (31-36); Mean Corpuscular Hemoglobin 31 pg (27-31); Mean Corpuscular Volume 91 fL (80-97); Mean Platelet Volume 7.8 um3 (7.4-10.4); Nucleated Red Blood Cells % 0; Platelet Count 232 10^3/ul (150-450); Red Cell Distribution Width 13 % (10.5-15)
[2018-05-01 14:14] LABS: EGFR Non-African American 43.9 (>60)
--- NOTE | 2018-05-01 14:43 | RAD ---
INDICATION: Dizziness COMPARISON: Chest x-ray April 15, 2017; CTA chest October 07, 2016; chest x-ray May 15, 2009. TECHNIQUE: An AP portable view obtained at ; 1425 hours is submitted. FINDINGS: Bones/Soft Tissues: There are no acute bony findings. Cardiomediastinal: The cardiac silhouette is unchanged. There is uncoiling and ectasia of the thoracic aorta with ascending aortic ectasia. Lungs: There are no infiltrates. There is a stable 1.6 cm nodule in the left lung base Pleura: There are no pleural effusions. Other: None IMPRESSION: STABLE CARDIAC SILHOUETTE AND LEFT LOWER LOBE LUNG NODULE. NO ACUTE FINDINGS
[2018-05-01] MEDS ORDERED: NS 0.9% 1000 ML* 1,000 ML IV ONE (15:05)
[2018-05-01] MEDS ORDERED: LORazepam INJ* 2 MG/ML 1 ML VIAL IV ONE (15:57)
[2018-05-01] MEDS ORDERED: Labetalol IV* 5 MG/ML 20 ML VIAL IV PUSH ONE ×2 (16:00→19:26)
[2018-05-01] MEDS ORDERED: Morphine VIAL* 4 MG/ML VIAL (1 ml vial) IV PRN (16:00)
[2018-05-01] MEDS ORDERED: Ondansetron INJ* 2 MG/ML VIAL IV PRN (16:00)
[2018-05-01] MEDS ORDERED: Acetaminophen TAB* 325 MG PO PRN ×2 (16:00→16:03)
[2018-05-01] MEDS ORDERED: Potassium Chlor TAB* 20 MEQ TAB.ER PO ONE ×2 (16:05→19:28)
[2018-05-01] MEDS ORDERED: Magnesium Sulf 4 GM/100 ML IV* 4,000 MG/100 ML BAG IVPB ONE (16:05)
[2018-05-01] MEDS: amLODIPine TAB* 5 MG PO SCH (17:33)
[2018-05-01] MEDS: NS 0.9% 1000 ML* 1,000 ML IV SCH (17:35)
[2018-05-01] MEDS ORDERED: Enalapril TAB* 5 MG PO ONE (19:27)
[2018-05-01] MEDS: Senna TAB PO SCH (20:27)
[2018-05-01] MEDS ORDERED: Zolpidem TAB* 10 MG PO SCH (21:00)
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
[2018-05-01] MEDS: Heparin VIAL(*) 5000 UNITS/ML VIAL (FIVE THOUSAND) SUBCUT SCH (21:26)
[2018-05-02 05:59] LABS: ABS Basophils 0 10^3/ul (0-0.2); ABS Eosinophils 0.1 10^3/ul (0-0.6); ABS Lymphocytes 1.6 10^3/ul (1.0-4.8); ABS Monocytes 0.3 10^3/ul (0-0.8); ABS Neutrophils 2.8 10^3/ul (1.5-7.7); ABS Nucleated RBC 0 10^3/ul; Eosinophil % 1.8 % (0-6); Hematocrit 30 % (35-47); Hemoglobin 10.5 g/dl (12.0-16.0); Lymphocyte % 33.4 % (25-47); Mean Corpuscular HGB Conc 34 g/dl (31-36); Mean Corpuscular Hemoglobin 31 pg (27-31); Mean Corpuscular Volume 91 fL (80-97); Mean Platelet Volume 7.4 um3 (7.4-10.4); Nucleated Red Blood Cells % 0.1; Platelet Count 187 10^3/ul (150-450); Red Blood Count 3.34 10^6/ul (4.00-5.40); Red Cell Distribution Width 13 % (10.5-15); White Blood Count 4.9 10^3/ul (3.5-10.8)
[2018-05-02] MEDS: Heparin VIAL(*) 5000 UNITS/ML VIAL (FIVE THOUSAND) SUBCUT SCH ×2 (06:05→14:22)
[2018-05-02 06:23] LABS: EGFR Non-African American 51.7 (>60)
[2018-05-02] MEDS: NS 0.9% 1000 ML* 1,000 ML IV SCH (08:31)
[2018-05-02] MEDS: amLODIPine TAB* 5 MG PO SCH (08:33)
[2018-05-02] MEDS: Senna TAB PO SCH (08:33)
[2018-05-02] MEDS ORDERED: Venlafaxine EXT RELEASE CAP* 37.5 MG PO SCH (09:00)
[2018-05-02] MEDS ORDERED: Hydrochlorothiazide TAB* 25 MG PO SCH (09:00)
[2018-05-02] MEDS ORDERED: Omeprazole CAP* 20 MG PO SCH (09:00)
[2018-05-02] MEDS ORDERED: Lisinopril TAB* 10 MG PO SCH ×2 (09:00)
[2018-05-02] MEDS ORDERED: Aspirin EC TAB* 81 MG TAB.EC PO SCH (09:00)
[2018-05-02 13:02] VITALS: BP 182/80
--- NOTE | 2018-05-02 14:26 | PN ---
Hospitalist Progress Note Date of Service: 05/02/18 . HOSPITALIST DISCHARGE NOTE: See dc instructions and summary by me for more details. Patient requests (really, she insists) to be discharged today. Long discussion held at bedside in which she made it clear she would rather face any of the medical consequences of being discharged, as opposed to staying in the hospital, up to, and including . I discussed the possibility of placement in a LT facility or assisted living and she adamantly refuses. dc instructions reviewed with the patient at the bedside. she assured me she is done driving and can get from place to place with gadabout. DC patient home today.
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
== END 2018-05-02 15:00 | disposition home or self-care (01) ==
LOC: ED 12:33 → MEDTELE 16:20 → INTOOBSV 16:20
PROVIDERS: ADMIT Internal Medicine; ATTEND Internal Medicine
DX: E86.0 Dehydration (principal); R42 Dizziness and giddiness; I10 Essential (primary) hypertension; V43.52XA Car driver injured in collision with other type car in traffic accident, initial encounter; Y92.410 Unspecified street and highway as the place of occurrence of the external cause; I69.351 Hemiplegia and hemiparesis following cerebral infarction affecting right dominant side; E11.9 Type 2 diabetes mellitus without complications; I25.10 Atherosclerotic heart disease of native coronary artery without angina pectoris; F32.9 Major depressive disorder, single episode, unspecified; I25.2 Old myocardial infarction; Z79.82 Long term (current) use of aspirin; Z79.899 Other long term (current) drug therapy; Z87.891 Personal history of nicotine dependence
CPT/HCPCS: 36415; 71045; 80048; 80053; 83605; 83735; 84443; 84484; 85025; 93005; 96374; 96375; 96376; 99285; A9270-GY; G0378; J2060; J3475

== ENCOUNTER 2019-05-09 23:07 | Emergency (ER) | payer MEDICARE, OTHER ==
[2019-05-09] MEDS ORDERED: Acetaminophen TAB* 325 MG PO ONE (23:28)
[2019-05-09] MEDS ORDERED: Lisinopril/HCTZ 20/25(NF) TAB PO SCH (23:45)
[2019-05-09] MEDS ORDERED: Lisinopril TAB* 10 MG PO SCH (23:59)
[2019-05-09] MEDS ORDERED: Hydrochlorothiazide TAB* 25 MG PO SCH (23:59)
--- NOTE | 2019-05-10 00:45 | ED ---
Head Injury - HPI Summary HPI Summary: Patient complains of hematoma to left forehead, and headache after mechanical fall when she tripped in the dark tonight. Denies LOC, vision change, N/V, dizziness, amnesia, neck pain, any other pain or injury or symptoms. Medical history is TIA, HTN, DM 2, CK D, CVA. - History Of Current Complaint Chief Complaint: EDFall Stated Complaint: FALL PER EMS Time Seen by Provider: 05/09/19 23:21 Hx Obtained From: Patient Mechanism Of Injury: Fall From A Standing Position Onset/Duration: Started Hours Ago Onset of Pain: Immediate Severity Currently: Severe Severity Initially: Severe Pain Intensity: 10 Pain Scale Used: 0-10 Numeric Location of Head Injury: Frontal Character: Throbbing Associated Signs And Symptoms: Headache - Allergies/Home Medications Allergies/Adverse Reactions: Allergies Allergy/AdvReac Type Severity Reaction Status Date / Time No Known Allergies Allergy Verified 03/30/16 15:49 Home Medications: Home Medications Gabapentin CAP(*) [Neurontin 100 mg CAP(*)] 100 mg PO DAILY WITH MEAL 05/09/19 [ History Confirmed 05/09/19] Glimepiride 1 mg PO DAILY 05/09/19 [History Confirmed 05/09/19] PMH/Surg Hx/FS Hx/Imm Hx Endocrine/Hematology History: Reports: Hx Diabetes Cardiovascular History: Reports: Hx Coronary Artery Disease, Hx Hypercholesterolemia, Hx Hypertension, Hx Syncope Denies: Hx Pacemaker/ICD Respiratory History: Denies: Hx Chronic Obstructive Pulmonary Disease (COPD) GI History: Reports: Hx Gastroesophageal Reflux Disease History: Denies: Hx Dialysis Sensory History: Reports: Hx Cataracts - removed Denies: Hx Contacts or Glasses, Hx Legally Blind, Hx Macular Degeneration, Hx Deafness, Hx Hearing Aid, Hx Hearing Problem Opthamlomology History: Reports: Hx Cataracts - removed Denies: Hx Contacts or Glasses, Hx Legally Blind, Hx Macular Degeneration Neurological History: Reports: Hx Transient Ischemic Attacks (TIA) Denies: Hx Dementia, Hx Developmental Delay, Hx Headaches, Hx Migraine, Hx Nerve Disease, Hx Seizures Psychiatric History: Reports: Hx Depression Denies: Hx Panic Disorder - Surgical History Surgery Procedure, Year, and Place: CATARACT SURGERY, NECK SURGERY (LYMPH NODE REMOVAL), APPENDECTOMY, CHOLECYSTECOMY, CARDIAC CATH- NO STENTS PLACED Hx Anesthesia Reactions: No - Immunization History Date of Tetanus Vaccine: Up to date Date of Influenza Vaccine: Fall 2012 Infectious Disease History: No Infectious Disease History: Denies: Hx Clostridium Difficile, Hx Hepatitis, Hx Human Immunodeficiency Virus (HIV), Hx of Known/Suspected MRSA, Hx Shingles, Hx Tuberculosis, History Other Infectious Disease, Traveled Outside the [place] in Last 30 Days - Family History Known Family History: Positive: Cardiac Disease, Other - cancer, GI bleed - Social History Alcohol Use: None Alcohol Amount: ex alcoholic Substance Use Type: Reports: None Smoking Status (MU): Former Smoker Type: Cigarettes Amount Used/How Often: 3-4 PPD Length of Time of Smoking/Using Tobacco: 20 years Have You Smoked in the Last Year: No Review of Systems Constitutional: Negative Eyes: Negative ENT: Negative Cardiovascular: Negative Respiratory: Negative Gastrointestinal: Negative Genitourinary: Negative Musculoskeletal: Negative Skin: Negative Neurological: Negative Psychological: Normal All Other Systems Reviewed And Are Negative: Yes Physical Exam - Summary Physical Exam Summary: Large hematoma to left forehead. No exam normal. No evidence of other trauma to mouth, face, head. Full range of motion of neck and jaw. No pain with palpation of neck, back, chest, abdomen. Patient moves all 4 extremities freely. Triage Information Reviewed: Yes Vital Signs On Initial Exam: Initial Vitals Temp Pulse Resp BP Pulse Ox 97.5 F 82 18 202/98 100 05/09/19 23:17 05/09/19 23:17 05/09/19 23:17 05/09/19 23:17 05/09/19 23:17 Vital Signs Reviewed: Yes Appearance: Positive: Well-Appearing Skin: Positive: Warm Head/Face: Positive: Normal Head/Face Inspection Eyes: Positive: Normal ENT: Positive: Normal ENT inspection Dental: Negative: Dental Fracture @, Bleeding Neck: Positive: Supple Respiratory/Lung Sounds: Positive: Clear to Auscultation Cardiovascular: Positive: Normal Abdomen Description: Positive: Nontender Musculoskeletal: Positive: Normal Neurological: Positive: Normal Psychiatric: Positive: Normal AVPU Assessment: Alert - Gloria Coma Scale Best Eye Response: 4 - Spontaneous Best Motor Response: 6 - Obeys Commands Best Verbal Response: 5 - Oriented Coma Scale Total: 15 Diagnostics - Vital Signs Vital Signs Temp Pulse Resp BP Pulse Ox 05/10/19 00:43 98.0 F 81 19 222/96 100 05/09/19 23:17 97.5 F 82 18 202/98 100 - Laboratory Lab Statement: Any lab studies that have been ordered have been reviewed, and results considered in the medical decision making process. Head Injury Course/Dx Course Of Treatment: Patient complains of hematoma to left forehead, and headache after mechanical fall when she tripped in the dark tonight. Denies LOC , vision change, N/V, dizziness, amnesia, neck pain, any other pain or injury or symptoms. Medical history is TIA, HTN, DM 2, CK D, CVA. Hypertensive. Patient states she cannot remember when she last took her blood pressure medication. Patient given lisinopril/HCTZ 20 mg/25 mg with no change in blood pressure. Patient given hydralazine 5 mg IV which dropped blood pressure to normal limits. Vital signs otherwise unremarkable. Blood pressure resolved to 168/114 over after hydralazine 5 mg IV and lisinopril/HCTZ 20/[address] CT negative. Patient advised to follow-up with primary care for management of hypertension. - Diagnoses Provider Diagnoses: Head injury, Hematoma, Hypertension Discharge - Sign-Out/Discharge Documenting (check all that apply): Patient Departure Patient Received Moderate/Deep Sedation with Procedure: No - Discharge Plan Condition: Stable Disposition: HOME Patient Education Materials: Head Injury (ED), Contusion in Adults (ED), Hypertension (ED), Hematoma (ED) Referrals: Ariana Sidhu MD [Primary Care Provider] - Additional Instructions: Follow-up with primary care for management of hypertension and hematoma.. Return to the ED for any new or worsening symptoms. - Billing Disposition and Condition Condition: STABLE Disposition: Home
[2019-05-10] MEDS ORDERED: hydrALAZINE IV* 20 MG/ML VIAL IV SLOW PU ONE (01:38)
[2019-05-10 03:09] VITALS: BP 200/100
== END 2019-05-10 03:07 | disposition home or self-care (01) ==
LOC: ED 23:07
DX: S09.90XA Unspecified injury of head, initial encounter (principal); R51 Headache; W01.0XXA Fall on same level from slipping, tripping and stumbling without subsequent striking against object, initial encounter; Y92.9 Unspecified place or not applicable; I10 Essential (primary) hypertension; Z86.73 Personal history of transient ischemic attack (TIA), and cerebral infarction without residual deficits; I12.9 Hypertensive chronic kidney disease with stage 1 through stage 4 chronic kidney disease, or unspecified chronic kidney disease; E09.22 Drug or chemical induced diabetes mellitus with diabetic chronic kidney disease; N18.9 Chronic kidney disease, unspecified; I25.10 Atherosclerotic heart disease of native coronary artery without angina pectoris; K21.9 Gastro-esophageal reflux disease without esophagitis; Z87.891 Personal history of nicotine dependence
CPT/HCPCS: 70450; 96374; 99285; A9270-GY; J0360

== ENCOUNTER 2020-05-19 12:27 | Observation (INO) ==
[~2020-05-19 12:27] MED LIST: Buffered Lidocaine 1% SYRIN 1 ml INTRADERM ONE; Lactated Ringers 1000 ml BAG 1,000 ML IV SCH
[2020-05-19] MEDS ORDERED: ceFAZolin 2 GM PREMIX 2 GM/50 ML BAG ONE (13:19)
[2020-05-19] MEDS ORDERED: Buffered Lidocaine 1% SYRIN 1 ml INTRADERM ONE (13:19)
[2020-05-19] MEDS ORDERED: Midazolam 5 mg/5 ml VIAL 1 mg/ml 5 ml VIAL (5 mg) ONE (13:52)
[2020-05-19] MEDS ORDERED: Lidocaine 2% PF 5 ML VIAL ONE (14:09)
[2020-05-19] MEDS ORDERED: ROPIVACAINE 5 MG/ML 30 ML BTL (0.5%) ONE ×2 (14:10→14:28)
[2020-05-19] MEDS ORDERED: Bupivacaine 0.5% SDV PF 30ML VIAL ONE (14:30)
[2020-05-19] MEDS ORDERED: Dexamethasone IV 4 MG/ML VIAL 1 ml VIAL ONE (15:25)
[2020-05-19] MEDS ORDERED: Ondansetron 4 mg VIAL 2 MG/ML 2 ml VIAL ONE (15:25)
[2020-05-19] MEDS ORDERED: Lactulose 30 ml UDC PO PRN (16:06)
[2020-05-19] MEDS ORDERED: oxyCODONE/Acetamin 5/325 mg TAB PO PRN (16:06)
[2020-05-19] MEDS ORDERED: Ondansetron ODT 4 mg TAB 4 MG TAB PO PRN (16:06)
[2020-05-19] MEDS ORDERED: Magnesium Hydroxide LIQ 30 ML UDC PO PRN (16:06)
[2020-05-19] MEDS ORDERED: Ondansetron 4 mg VIAL 2 MG/ML 2 ml VIAL IV PRN (16:06)
[2020-05-19] MEDS ORDERED: diPHENhydraMINE 25 mg TAB PO PRN (16:06)
[2020-05-19] MEDS ORDERED: diPHENhydraMINE IV 50 MG/ML 1 ml VIAL (BENADRYL) IV PRN (16:06)
[2020-05-19] MEDS ORDERED: Propofol 10 MG/ML 20 ML BTL ONE (16:18)
[2020-05-19] MEDS: Lactated Ringers 1000 ml BAG 1,000 ML IV SCH (20:45)
[2020-05-19] MEDS: Magnesium Hydroxide LIQ 30 ML UDC PO SCH (20:48)
[2020-05-19] MEDS: oxyCODONE/Acetamin 5/325 mg TAB PO PRN (21:48)
[2020-05-20] MEDS ORDERED: Polyethylene Glycol 3350 17 GM PACKET PO PRN (00:01)
[2020-05-20] MEDS: ceFAZolin 1 GM ADVAN 1 GM in NS 0.9% 50 ML 50 ML IVPB SCH ×2 (00:12→08:02)
[2020-05-20] MEDS: Morphine 2 MG/ML SYRINGE IV PRN ×2 (02:21→08:02)
[2020-05-20] MEDS: oxyCODONE/Acetamin 5/325 mg TAB PO PRN ×2 (04:44→10:08)
[2020-05-20] MEDS: Lactated Ringers 1000 ml BAG 1,000 ML IV SCH (07:03)
[2020-05-20] MEDS ORDERED: Vitamin THERAPEUTIC TAB PO SCH (09:00)
[2020-05-20] MEDS ORDERED: CMCS: Glimepiride 2 mg TAB (NF) PO SCH (09:00)
[2020-05-20 09:25] LABS: Hematocrit 29 % (35-47); Hemoglobin 10.1 g/dL (12.0-16.0); Mean Platelet Volume 7.8 fL (7.4-10.4); Platelet Count 191 10^3/uL (150-450)
[2020-05-20 09:40] LABS: BUN/Creatinine Ratio 16.6 (8-20); Calcium 8.1 mg/dL (8.6-10.3); EGFR African American 40.9 (>60); EGFR Non-African American 33.8 (>60); Potassium 4.2 mmol/L (3.5-5.0)
[2020-05-20] MEDS: Magnesium Hydroxide LIQ 30 ML UDC PO SCH (09:58)
[2020-05-20 12:04] VITALS: BP 128/53
== END 2020-05-20 14:05 | disposition home or self-care (01) ==
LOC: INTOOBSV 12:27 → AA 12:27 → SSU 16:06
PROVIDERS: ADMIT Orthopaedic Surgery Adult Reconstructive Orthopaedic Surgery; ATTEND Orthopaedic Surgery Adult Reconstructive Orthopaedic Surgery

== ENCOUNTER 2020-06-01 12:06 | Inpatient (IN) ==
[2020-06-01] MEDS ORDERED: NS 0.9% 1000 ml BAG 1,000 ML IV ONE (12:23)
[2020-06-01 12:35] LABS: ABS Lymphocytes 0.5 10^3/ul (1.0-4.8); ABS Monocytes 0.3 10^3/ul (0-0.8); Hematocrit 30 % (35-47); Hemoglobin 10.3 g/dL (12.0-16.0); Lymphocyte % 3.5 %; Mean Corpuscular HGB Conc 34 g/dL (31-36); Mean Corpuscular Hemoglobin 32 pg (27-31); Mean Corpuscular Volume 92 fL (80-97); Mean Platelet Volume 6.8 fL (7.4-10.4); Platelet Count 442 10^3/uL (150-450); Red Blood Count 3.26 10^6 /uL (3.70-4.87); Red Cell Distribution Width 15 % (10-15); White Blood Count 12.8 10^3/uL (3.5-10.8)
[2020-06-01 13:00] LABS: Albumin/Globulin Ratio 1.2 (1-3); BUN/Creatinine Ratio 16.6 (8-20); Calcium 9.5 mg/dL (8.6-10.3); EGFR African American 39.1 (>60); EGFR Non-African American 32.3 (>60); Globulin 3.3 g/dL (2-4); Potassium 3.3 mmol/L (3.5-5.0); Total Bilirubin 0.8 mg/dL (0.2-1.0); Total Protein 7.3 g/dL (6.4-8.9)
[2020-06-01] MEDS ORDERED: Dextrose 50% Syringe 50 ml 25 GM/50 ML SYRINGE IV PUSH PRN (13:59)
[2020-06-01] MEDS ORDERED: oxyCODONE/Acetamin 5/325 mg TAB PO PRN ×2 (14:03→14:04)
[2020-06-01] MEDS ORDERED: Ondansetron 4 mg VIAL 2 MG/ML 2 ml VIAL IV PRN (14:07)
[2020-06-01] MEDS ORDERED: Potassium Chlor 20 meq TAB.ER PO ONE (14:13)
[2020-06-01 14:29] LABS: Magnesium 1.3 mg/dL (1.9-2.7)
[2020-06-01] MEDS ORDERED: Magnesium Sulfate IV 3 GM in NS 0.9% 100 ml BAG 100 ML IVPB ONE (15:01)
[2020-06-02] MEDS: Morphine 2 MG/ML SYRINGE IV PRN (05:05)
[2020-06-02 05:38] LABS: ABS Eosinophils 0.1 10^3/ul (0-0.6); ABS Lymphocytes 1.4 10^3/ul (1.0-4.8); ABS Monocytes 0.4 10^3/ul (0-0.8); ABS Neutrophils 3.5 10^3/ul (1.5-7.7); Eosinophil % 1.6 %; Hematocrit 29 % (35-47); Hemoglobin 10.1 g/dL (12.0-16.0); Lymphocyte % 26.3 %; Mean Corpuscular HGB Conc 35 g/dL (31-36); Mean Corpuscular Hemoglobin 32 pg (27-31); Mean Corpuscular Volume 92 fL (80-97); Platelet Count 375 10^3/uL (150-450); Red Blood Count 3.19 10^6 /uL (3.70-4.87); Red Cell Distribution Width 15 % (10-15); White Blood Count 5.4 10^3/uL (3.5-10.8)
[2020-06-02 05:52] LABS: Anion Gap 10 mmol/L (2-11); CO2 Carbon Dioxide 26 mmol/L (22-32); Calcium 9.3 mg/dL (8.6-10.3); Chloride 103 mmol/L (101-111); Potassium 3.5 mmol/L (3.5-5.0); Sodium 139 mmol/L (135-145)
[2020-06-02 05:58] LABS: BUN/Creatinine Ratio 16.5 (8-20); Blood Urea Nitrogen 20 mg/dL (6-24); Cholesterol 186 mg/dL; EGFR African American 52.8 (>60); EGFR Non-African American 43.6 (>60); Glucose 107 mg/dL (70-100); HDL Cholesterol 36.6 mg/dL; LDL Cholesterol 120 mg/dL; Triglycerides 147 mg/dL
[2020-06-02 14:18] LABS: Urine Benzodiazepine Screen None Detected (None Detect); Urine Cannabinoids Screen None Detected (None Detect); Urine Opiates Screen Presumptive Positive (None Detect)
[2020-06-02] MEDS ORDERED: LORazepam 2 mg VIAL 1 ml IV PUSH ONE (14:20)
[2020-06-02] MEDS ORDERED: Lorazepam PYXIS KEY PRN (14:20)
[2020-06-02] MEDS ORDERED: levETIRAcetam 1000MG IVPREMIX 1,000 MG/100 ML BAG IVPB ONE (15:00)
[2020-06-02 23:44] LABS: Urine Appearance Clear; Urine Bilirubin Negative (Negative); Urine Blood Negative (Negative); Urine Color Yellow; Urine Glucose Negative (Negative); Urine Ketones Negative (Negative); Urine Nitrite Negative (Negative); Urine Protein Negative (Negative); Urine Specific Gravity 1.012 (1.010-1.030); Urine Urobilinogen Negative (Negative)
[2020-06-03] MEDS: levETIRAcetam 500 MG IVPREMIX 500 MG/100 ML BAG IV SCH ×2 (02:52→15:54)
[2020-06-03 05:48] LABS: ABS Basophils 0.1 10^3/ul (0-0.2); ABS Eosinophils 0.1 10^3/ul (0-0.6); ABS Monocytes 0.5 10^3/ul (0-0.8); ABS Neutrophils 6.9 10^3/ul (1.5-7.7); Eosinophil % 0.7 %; Hematocrit 34 % (35-47); Hemoglobin 11.3 g/dL (12.0-16.0); Lymphocyte % 11.3 %; Mean Corpuscular HGB Conc 34 g/dL (31-36); Mean Corpuscular Hemoglobin 31 pg (27-31); Mean Corpuscular Volume 92 fL (80-97); Mean Platelet Volume 6.8 fL (7.4-10.4); Platelet Count 472 10^3/uL (150-450); Red Blood Count 3.67 10^6 /uL (3.70-4.87); Red Cell Distribution Width 14 % (10-15); White Blood Count 8.4 10^3/uL (3.5-10.8)
[2020-06-03 06:02] LABS: Anion Gap 12 mmol/L (2-11); BUN/Creatinine Ratio 17.3 (8-20); Blood Urea Nitrogen 17 mg/dL (6-24); CO2 Carbon Dioxide 24 mmol/L (22-32); Calcium 9.6 mg/dL (8.6-10.3); Chloride 100 mmol/L (101-111); EGFR African American 67.3 (>60); EGFR Non-African American 55.6 (>60); Glucose 158 mg/dL (70-100); Potassium 3.6 mmol/L (3.5-5.0); Sodium 136 mmol/L (135-145)
[2020-06-03] MEDS: Aspirin EC 81 mg TAB.EC (enteric coated) PO SCH (10:16)
[2020-06-04] MEDS: levETIRAcetam 500 MG IVPREMIX 500 MG/100 ML BAG IV SCH ×2 (02:28→15:21)
[2020-06-04] MEDS: Morphine 2 MG/ML SYRINGE IV PRN (04:36)
[2020-06-04] MEDS: Aspirin EC 81 mg TAB.EC (enteric coated) PO SCH (08:56)
[2020-06-04 11:45] LABS: Troponin I 0.16 ng/mL (<0.03)
[2020-06-04] MEDS ORDERED: Iodixanol (CONTRAST) 320 MG/ML 100 ML SDV IV ONE (12:27)
[2020-06-04 13:39] LABS: Magnesium 1.3 mg/dL (1.9-2.7)
[2020-06-04 14:15] LABS: Troponin I 0.76 ng/mL (<0.03)
[2020-06-04 14:18] LABS: Troponin I 0.18 ng/mL (<0.03)
[2020-06-04] MEDS ORDERED: Magnesium Sulf 4 GM/100 ML IV 4,000 MG/100 ML BAG IVPB ONE (14:30)
[2020-06-04 14:46] LABS: % Iron Saturation 10 % (15-55); Iron 23 ug/dL (50-212); Total Iron Binding Capacity 237 mcg/dL (250-450); Transferrin 169 mg/dL (203-362); Unsaturated Iron Binding < 222 ug/dL
[2020-06-04 14:54] LABS: Troponin I 0.17 ng/mL (<0.03)
[2020-06-04 15:07] LABS: Ferritin 144.5 ng/mL (11-307)
[2020-06-04] MEDS ORDERED: Iron Sucrose 200 MG in NS 0.9% 100 ml BAG 100 ML IVPB ONE (19:09)
[2020-06-04 22:45] LABS: Creatine Kinase 246 U/L (10-223)
[2020-06-04] MEDS: levETIRAcetam IV 750 MG in NS 0.9% 100 ml BAG 100 ML IVPB SCH (22:56)
[2020-06-04 23:01] LABS: TSH Ultra Thyroid Stim Horm 1.73 mcIU/mL (0.34-5.60)
[2020-06-04 23:13] LABS: Vitamin B12 790 pg/mL (180-914)
[2020-06-05 09:22] LABS: Calcium 8.7 mg/dL (8.6-10.3); Magnesium 2.3 mg/dL (1.9-2.7); Potassium 4.2 mmol/L (3.5-5.0)
[2020-06-05 09:28] LABS: BUN/Creatinine Ratio 18.8 (8-20); EGFR African American 57.7 (>60); EGFR Non-African American 47.7 (>60)
[2020-06-05] MEDS: Aspirin EC 81 mg TAB.EC (enteric coated) PO SCH (09:38)
[2020-06-05 09:44] LABS: Creatine Kinase 213 U/L (10-223)
[2020-06-05] MEDS: levETIRAcetam IV 750 MG in NS 0.9% 100 ml BAG 100 ML IVPB SCH ×2 (09:46→22:16)
[2020-06-05 09:50] LABS: CKMB ng/mL 3.9 ng/mL (0.6-6.3)
[2020-06-06 06:50] LABS: ABS Basophils 0.1 10^3/ul (0-0.2); ABS Eosinophils 0.2 10^3/ul (0-0.6); ABS Monocytes 0.6 10^3/ul (0-0.8); ABS Neutrophils 6.4 10^3/ul (1.5-7.7); Eosinophil % 2.8 %; Hematocrit 30 % (35-47); Hemoglobin 10.8 g/dL (12.0-16.0); Lymphocyte % 11.7 %; Mean Corpuscular HGB Conc 36 g/dL (31-36); Mean Corpuscular Hemoglobin 33 pg (27-31); Mean Corpuscular Volume 92 fL (80-97); Mean Platelet Volume 7.4 fL (7.4-10.4); Platelet Count 414 10^3/uL (150-450); Red Cell Distribution Width 15 % (10-15); White Blood Count 8.3 10^3/uL (3.5-10.8)
[2020-06-06 07:09] LABS: BUN/Creatinine Ratio 20.2 (8-20); Calcium 8.9 mg/dL (8.6-10.3); EGFR African American 56.5 (>60); EGFR Non-African American 46.7 (>60); Potassium 4.6 mmol/L (3.5-5.0)
[2020-06-06] MEDS: Aspirin EC 81 mg TAB.EC (enteric coated) PO SCH (09:36)
[2020-06-06] MEDS: levETIRAcetam IV 750 MG in NS 0.9% 100 ml BAG 100 ML IVPB SCH ×2 (09:39→21:06)
[2020-06-07 07:00] LABS: ABS Basophils 0.1 10^3/ul (0-0.2); ABS Eosinophils 0.1 10^3/ul (0-0.6); ABS Lymphocytes 0.8 10^3/ul (1.0-4.8); ABS Monocytes 0.5 10^3/ul (0-0.8); Hematocrit 30 % (35-47); Hemoglobin 10.2 g/dL (12.0-16.0); Lymphocyte % 12.3 %; Mean Corpuscular HGB Conc 35 g/dL (31-36); Mean Corpuscular Hemoglobin 32 pg (27-31); Mean Corpuscular Volume 92 fL (80-97); Mean Platelet Volume 6.9 fL (7.4-10.4); Platelet Count 390 10^3/uL (150-450); Red Blood Count 3.21 10^6 /uL (3.70-4.87); Red Cell Distribution Width 14 % (10-15); White Blood Count 6.5 10^3/uL (3.5-10.8)
[2020-06-07 07:25] LABS: BUN/Creatinine Ratio 23.5 (8-20); Calcium 8.7 mg/dL (8.6-10.3); EGFR African American 67.3 (>60); EGFR Non-African American 55.6 (>60); Potassium 3.9 mmol/L (3.5-5.0)
[2020-06-07] MEDS: Aspirin EC 81 mg TAB.EC (enteric coated) PO SCH (08:49)
[2020-06-08] MEDS: Aspirin EC 81 mg TAB.EC (enteric coated) PO SCH (09:36)
[2020-06-08] MEDS ORDERED: Iron Sucrose 200 MG in NS 0.9% 100 ml BAG 100 ML IVPB SCH (14:06)
[2020-06-08] MEDS: Potassium Chloride LIQUID 20 MEQ/15 ML LIQUID PO SCH ×2 (14:50→22:39)
[2020-06-09 09:07] LABS: ABS Basophils 0.1 10^3/ul (0-0.2); ABS Eosinophils 0.1 10^3/ul (0-0.6); ABS Lymphocytes 0.8 10^3/ul (1.0-4.8); ABS Monocytes 0.4 10^3/ul (0-0.8); ABS Neutrophils 3.7 10^3/ul (1.5-7.7); Eosinophil % 2.6 %; Hematocrit 33 % (35-47); Hemoglobin 11.3 g/dL (12.0-16.0); Lymphocyte % 15.7 %; Mean Corpuscular HGB Conc 35 g/dL (31-36); Mean Corpuscular Hemoglobin 32 pg (27-31); Mean Corpuscular Volume 92 fL (80-97); Mean Platelet Volume 7.2 fL (7.4-10.4); Nucleated Red Blood Cells % 0.1; Platelet Count 396 10^3/uL (150-450); Red Blood Count 3.54 10^6 /uL (3.70-4.87); Red Cell Distribution Width 14 % (10-15); White Blood Count 5.1 10^3/uL (3.5-10.8)
[2020-06-09 09:20] LABS: Albumin 3.7 g/dL (3.2-5.2); Albumin/Globulin Ratio 1.2 (1-3); BUN/Creatinine Ratio 16.5 (8-20); Calcium 9.2 mg/dL (8.6-10.3); EGFR African American 68.1 (>60); EGFR Non-African American 56.3 (>60); Globulin 3.1 g/dL (2-4); Magnesium 1.3 mg/dL (1.9-2.7); Potassium 4.1 mmol/L (3.5-5.0); Total Bilirubin 0.5 mg/dL (0.2-1.0); Total Protein 6.8 g/dL (6.4-8.9)
[2020-06-09 09:21] LABS: Troponin I 0.01 ng/mL (<0.03)
[2020-06-09] MEDS: Aspirin EC 81 mg TAB.EC (enteric coated) PO SCH (09:32)
[2020-06-09] MEDS ORDERED: Magnesium Sulf 4 GM/100 ML IV 4,000 MG/100 ML BAG IVPB ONE (11:26)
[2020-06-09 12:14] VITALS: BP 154/75
== END 2020-06-09 14:30 | DRG 64 ==
LOC: ED 12:06 → SSU 12:06 → MEDTELE 20:10
PROVIDERS: ADMIT Internal Medicine; ATTEND Internal Medicine

== ENCOUNTER 2021-12-07 10:41 | Observation (INO) ==
[2021-12-07 11:29] LABS: ABS Eosinophils 0.1 10^3/ul (0-0.6); ABS Lymphocytes 1.2 10^3/ul (1.0-4.8); ABS Monocytes 0.3 10^3/ul (0-0.8); ABS Neutrophils 3.9 10^3/ul (1.5-7.7); Eosinophil % 1.9 %; Hematocrit 35 % (35-47); Hemoglobin 11.9 g/dL (12.0-16.0); Mean Corpuscular HGB Conc 35 g/dL (31-36); Mean Corpuscular Hemoglobin 33 pg (27-31); Mean Corpuscular Volume 95 fL (80-97); Mean Platelet Volume 8.5 fL (7.4-10.4); Nucleated Red Blood Cells % 0.1; Platelet Count 170 10^3/uL (150-450); Red Blood Count 3.62 10^6 /uL (3.70-4.87); Red Cell Distribution Width 13 % (10-15); White Blood Count 5.5 10^3/uL (3.5-10.8)
[2021-12-07 11:33] LABS: INR 1.1 (0.86-1.15)
[2021-12-07 11:44] LABS: ALT 11 U/L (7-52); AST 20 U/L (13-39); Albumin 3.7 g/dL (3.2-5.2); Albumin/Globulin Ratio 1.5 (1-3); Alkaline Phosphatase 57 U/L (35-149); Anion Gap 6 mmol/L (2-11); Blood Urea Nitrogen 40 mg/dL (6-24); CO2 Carbon Dioxide 30 mmol/L (22-32); Calcium 8.8 mg/dL (8.6-10.3); Chloride 103 mmol/L (101-111); Globulin 2.5 g/dL (2-4); Glucose 156 mg/dL (70-100); Potassium 3.8 mmol/L (3.5-5.0); Sodium 139 mmol/L (135-145); Total Protein 6.2 g/dL (6.4-8.9); eGFR CKD-EPI 58.8 (>60)
[2021-12-07 11:59] LABS: Troponin I 0.29 ng/mL (<0.03)
[2021-12-07] MEDS ORDERED: Magnesium Hydroxide LIQ 30 ML UDC PO PRN (14:14)
[2021-12-07] MEDS ORDERED: Ondansetron 4 mg VIAL 2 MG/ML 2 ml VIAL IV PRN (14:14)
[2021-12-07] MEDS ORDERED: hydrALAZINE 20 mg/ml 1 ML Vial IV IV SLOW PU PRN (14:20)
[2021-12-07 14:29] LABS: Troponin I 0.64 ng/mL (<0.03)
[2021-12-07] MEDS ORDERED: Heparin DRIP 25,000 UNITS BAG 25,000 UNITS/500 ML BAG IV SCH (14:45)
[2021-12-07] MEDS ORDERED: Heparin 5000 UNITS/ML 1 mL VIAL IV SCH (15:00)
[2021-12-07] MEDS ORDERED: Metoprolol Tartrate 5 mg VIAL 5 ml VIAL (1 mg/ml) IV PRN ×2 (15:12→15:17)
[2021-12-07] MEDS: Enoxaparin 80 MG/0.8 ML SYR SUBCUT SCH ×2 (15:48→21:16)
[2021-12-07] MEDS ORDERED: Dextrose 50% Syringe 50 ml 25 GM/50 ML SYRINGE IV PUSH PRN (16:15)
[2021-12-07 18:35] LABS: Troponin I 1.63 ng/mL (<0.03)
[2021-12-07] MEDS ORDERED: levETIRAcetam LIQ 500 MG/5 ML UDC PO SCH (21:00)
[2021-12-07 21:32] LABS: Troponin I 1.57 ng/mL (<0.03)
[2021-12-07] MEDS ORDERED: Enalaprilat IV 1.25 mg/ml 1 ml VIAL (1.25 MG) IV ONE (21:58)
[2021-12-07] MEDS ORDERED: Heparin 5000 UNITS/ML 1 mL VIAL SUBCUT SCH (22:00)
[2021-12-08] MEDS ORDERED: Dextrose 50% Syringe 50 ml 25 GM/50 ML SYRINGE IV PUSH PRN (07:54)
[2021-12-08] MEDS ORDERED: Aspirin EC 81 mg TAB.EC (enteric coated) PO SCH (09:00)
[2021-12-08] MEDS: Enoxaparin 60 MG/0.6 ML SYR SUBCUT SCH ×2 (09:18→21:30)
[2021-12-09] MEDS: Enoxaparin 60 MG/0.6 ML SYR SUBCUT SCH (09:00)
[2021-12-09 12:23] VITALS: BP 153/63
== END 2021-12-09 13:59 ==
LOC: SUATTDRO → MEDTELE 10:41 → ED 10:41 → MEDTELE 17:37 → ED 17:39
PROVIDERS: ATTEND Internal Medicine

== ENCOUNTER 2022-09-08 19:45 | Inpatient (IN) ==
[2022-09-08] MEDS ORDERED: NS 0.9% 500 ml BAG 500 ML IV ONE (20:01)
[2022-09-08] MEDS ORDERED: Piperacillin/Tazobac ADVAN 3.375 GM in NS 0.9% 100 ml BAG 100 ML IV ONE (20:02)
[2022-09-08 23:47] LABS: Hematocrit 51 % (35-47); Hemoglobin 15.9 g/dL (12.0-16.0); Mean Corpuscular HGB Conc 31 g/dL (31-36); Mean Corpuscular Hemoglobin 32 pg (27-31); Mean Corpuscular Volume 101 fL (80-97); Mean Platelet Volume 10.5 fL (7.4-10.4); Platelet Count 262 10^3/uL (150-450); Red Blood Count 5.04 10^6 /uL (3.70-4.87); Red Cell Distribution Width 14 % (10-15); White Blood Count 15.4 10^3/uL (3.5-10.8)
[2022-09-09 00:11] LABS: High Sens Troponin Baseline 13732 pg/mL (<15)
[2022-09-09 00:18] LABS: ABS Lymphocytes 0.5 10^3/ul (1.0-4.8); ABS Monocytes 0.6 10^3/ul (0-0.8); ABS Neutrophils 14.3 10^3/ul (1.5-7.7)
[2022-09-09 00:29] LABS: ALT 15 U/L (7-52); Albumin 3.8 g/dL (3.2-5.2); Albumin/Globulin Ratio 1.4 (1-3); Alkaline Phosphatase 88 U/L (35-149); Blood Urea Nitrogen 84 mg/dL (6-24); C Reactive Protein 58.95 mg/L (<8.01); CO2 Carbon Dioxide 20 mmol/L (22-32); Calcium 9.4 mg/dL (8.6-10.3); Chloride 94 mmol/L (101-111); Globulin 2.8 g/dL (2-4); Sodium 137 mmol/L (135-145); Total Protein 6.6 g/dL (6.4-8.9); eGFR CKD-EPI 13.4 (>60)
[2022-09-09 00:43] LABS: TSH Ultra Thyroid Stim Horm 3.48 mcIU/mL (0.34-5.60)
[2022-09-09] MEDS ORDERED: Lactated Ringers 1000 ml BAG 1,000 ML IV ONE (00:52)
[2022-09-09] MEDS ORDERED: Dextrose 50% Syringe 50 ml 25 GM/50 ML SYRINGE IV PUSH PRN (00:55)
[2022-09-09 01:14] LABS: High Sensitivity Troponin 1 Hr 13851 pg/mL (<15)
[2022-09-09 01:19] LABS: Glucose 1247 mg/dL (70-100)
[2022-09-09 01:22] LABS: Anion Gap 23 mmol/L (2-11)
[2022-09-09 01:37] LABS: Magnesium 2.6 mg/dL (1.9-2.7); Phosphorus 4.4 mg/dL (2.5-5.0); Potassium Redraw 4.1 mmol/L (3.5-5.0)
[2022-09-09] MEDS ORDERED: Insulin Infusion 100unit/100mL 100 UNIT/100 ML BAG IV SCH (02:00)
[2022-09-09] MEDS ORDERED: Lactated Ringers 1000 ml BAG 1,000 ML IV SCH ×4 (02:00→15:13)
[2022-09-09 02:23] LABS: PCO2 Arterial 41 mmHg (35-45); PO2 Arterial 156 mmHg (80-100)
[2022-09-09 02:30] LABS: Urine Appearance Cloudy; Urine Bilirubin Negative (Negative); Urine Blood 2+ (Negative); Urine Color Yellow; Urine Glucose 3+(>=500 mg/dL) (Negative); Urine Ketones Trace (Negative); Urine Nitrite Negative (Negative); Urine Protein 1+(30 mg/dL) (Negative); Urine Urobilinogen Negative (Negative)
[2022-09-09 02:34] LABS: Urine Bacteria 1+ (Absent); Urine Red Blood Cell Trace(0-2/hpf) (Absent); Urine Squamous Epithelial Cell Present (Absent); Urine White Blood Cell 3+(>20/hpf) (Absent)
[2022-09-09] MEDS: Heparin 5000 UNITS/ML 1 mL VIAL IV SCH ×2 (02:55→17:48)
[2022-09-09] MEDS: Heparin DRIP 25,000 UNITS BAG 25,000 UNITS/500 ML BAG IV SCH (02:55)
[2022-09-09] MEDS ORDERED: Zosyn per Pharmacy NOTE FOLLOW UP SCH ×2 (04:00→23:45)
[2022-09-09] MEDS ORDERED: Potassium Chloride IV 40 MEQ in Lactated Ringers 1000 ml BAG 1,000 ML IVPB SCH ×2 (04:00→08:00)
[2022-09-09] MEDS: Insulin Infusion 100unit/100mL 100 UNIT/100 ML BAG IV SCH (04:30)
[2022-09-09 04:38] LABS: Osmolality Serum 356 mOsm/kg (275-295)
[2022-09-09 05:15] LABS: Calcium 8.4 mg/dL (8.6-10.3); Magnesium 2.5 mg/dL (1.9-2.7)
[2022-09-09 05:18] LABS: Potassium 5.7 mmol/L (3.5-5.0)
[2022-09-09 05:21] LABS: eGFR CKD-EPI 15.5 (>60)
[2022-09-09] MEDS: ZOSYN 3.375 GM Q12H per EXTENDED INFUSION IV SCH ×2 (05:40→15:49)
[2022-09-09 07:05] LABS: Calcium 8.6 mg/dL (8.6-10.3); Magnesium 2.7 mg/dL (1.9-2.7); Phosphorus 3.3 mg/dL (2.5-5.0); Potassium 3.4 mmol/L (3.5-5.0); eGFR CKD-EPI 15.5 (>60)
[2022-09-09] MEDS: KCL 20 MEQ/100 ML IVPREMIX 20 MEQ/100 ML BAG IV SCH ×2 (07:57→09:55)
[2022-09-09 08:25] LABS: Creatine Kinase 276 U/L (10-223)
[2022-09-09 08:44] LABS: PCO2 Arterial 35 mmHg (35-45); PO2 Arterial 91 mmHg (80-100)
[2022-09-09] MEDS ORDERED: LEVETIRACETAM 100 MG/ML PO SCH (09:00)
[2022-09-09] MEDS ORDERED: levETIRAcetam IV 750 MG in NS 0.9% 100 ml BAG 100 ML IVPB SCH (09:00)
[2022-09-09] MEDS ORDERED: FERROUS GLUCONATE PO SCH (09:00)
[2022-09-09] MEDS: levETIRAcetam 500 MG/100 ML IV SCH (09:52)
[2022-09-09 10:07] LABS: Calcium 8.9 mg/dL (8.6-10.3); Potassium 4.1 mmol/L (3.5-5.0); eGFR CKD-EPI 14.9 (>60)
[2022-09-09 15:25] LABS: Calcium 7.9 mg/dL (8.6-10.3)
[2022-09-09 15:26] LABS: Potassium 4.5 mmol/L (3.5-5.0)
[2022-09-09 15:27] LABS: Phosphorus 2.3 mg/dL (2.5-5.0)
[2022-09-09] MEDS ORDERED: Norepinephrine 16MCG/ML BAGD5W 4,000 MCG/250 ML BAG IV ONE (16:42)
[2022-09-09 16:44] LABS: Calcium 7.2 mg/dL (8.6-10.3); Magnesium 2.1 mg/dL (1.9-2.7); Potassium 3.5 mmol/L (3.5-5.0)
[2022-09-09 16:50] LABS: Phosphorus 1.8 mg/dL (2.5-5.0); eGFR CKD-EPI 17.9 (>60)
[2022-09-09] MEDS: Norepinephrine 16MCG/ML BAGD5W 4,000 MCG/250 ML BAG IV SCH ×2 (17:00→23:37)
[2022-09-09] MEDS ORDERED: Potassium Phosphate IV 10 MMOLE in NS 0.9% 250 ml 250 ML IVPB ONE (17:03)
[2022-09-09] MEDS ORDERED: POTASSIUM CHLORIDE IVPB SCH (18:00)
[2022-09-09] MEDS ORDERED: LACTATED RINGERS IVPB SCH (18:00)
[2022-09-09] MEDS ORDERED: cefTRIAXone 1 gm/50 mL D5W 1 GM/50 ML BAG IV SCH (20:00)
[2022-09-09 20:21] LABS: Glucose Confirmatory 500 mg/dL (70-100)
[2022-09-09 21:35] LABS: Calcium 8.6 mg/dL (8.6-10.3); Magnesium 2.4 mg/dL (1.9-2.7); Phosphorus 1.4 mg/dL (2.5-5.0); eGFR CKD-EPI 13.9 (>60)
[2022-09-09 21:40] LABS: Potassium 6.4 mmol/L (3.5-5.0)
[2022-09-09 22:27] LABS: Glucose Confirmatory 497 mg/dL (70-100)
[2022-09-09 23:26] LABS: Glucose Confirmatory 450 mg/dL (70-100)
[2022-09-09] MEDS ORDERED: Piperacillin/Tazobac ADVAN 3.375 GM in NS 0.9% 100 ml BAG 100 ML IV ONE (23:26)
[2022-09-10 00:02] LABS: Hematocrit 48 % (35-47); Hemoglobin 16.2 g/dL (12.0-16.0); Mean Corpuscular HGB Conc 34 g/dL (31-36); Mean Corpuscular Hemoglobin 32 pg (27-31); Mean Corpuscular Volume 95 fL (80-97); Mean Platelet Volume 10.2 fL (7.4-10.4); Platelet Count 272 10^3/uL (150-450); Red Blood Count 5.08 10^6 /uL (3.70-4.87); Red Cell Distribution Width 13 % (10-15); White Blood Count 9.1 10^3/uL (3.5-10.8)
[2022-09-10 00:19] LABS: Glucose Confirmatory 427 mg/dL (70-100)
[2022-09-10 00:52] LABS: High Sensitivity Troponin 1 Hr 16788 pg/mL (<15)
[2022-09-10] MEDS: Insulin Infusion 100unit/100mL 100 UNIT/100 ML BAG IV SCH (01:04)
[2022-09-10] MEDS: Saline FLUSH-PERIPHERAL 10 ML SYRINGE IV FLUSH SCH ×2 (01:09→10:20)
[2022-09-10 01:18] LABS: Calcium 8.8 mg/dL (8.6-10.3); Magnesium 2.4 mg/dL (1.9-2.7); Phosphorus 1.2 mg/dL (2.5-5.0)
[2022-09-10 01:20] LABS: Glucose Confirmatory 408 mg/dL (70-100)
[2022-09-10] MEDS ORDERED: Morphine 2 MG/ML SYRINGE IV ONE (01:23)
[2022-09-10 01:26] LABS: Potassium 5.6 mmol/L (3.5-5.0)
[2022-09-10] MEDS ORDERED: Sodium Phosphate IV 15 MMOLE in NS 0.9% 250 ml 250 ML IV ONE (02:00)
[2022-09-10] MEDS ORDERED: NS 0.45% 1000 ml BAG 1,000 ML IV SCH (02:00)
[2022-09-10 02:08] LABS: ABS Monocytes 0.5 10^3/ul (0-0.8); ABS Neutrophils 7.6 10^3/ul (1.5-7.7); Eosinophil % 0.1 %; Nucleated Red Blood Cells % 0.1; RBC Morphology Normal (Normal)
[2022-09-10] MEDS: Norepinephrine 16MCG/ML BAGD5W 4,000 MCG/250 ML BAG IV SCH ×4 (02:08→07:55)
[2022-09-10 03:02] LABS: Venous Bicarbonate HCO3 19.9 mmol/L (24-28)
[2022-09-10] MEDS: ZOSYN 3.375 GM Q12H per EXTENDED INFUSION IV SCH (04:20)
[2022-09-10 04:23] LABS: Hematocrit 37 % (35-47); Hemoglobin 12.3 g/dL (12.0-16.0); Mean Corpuscular HGB Conc 34 g/dL (31-36); Mean Corpuscular Hemoglobin 32 pg (27-31); Mean Corpuscular Volume 95 fL (80-97); Mean Platelet Volume 10.3 fL (7.4-10.4); Platelet Count 193 10^3/uL (150-450); Red Blood Count 3.85 10^6 /uL (3.70-4.87); Red Cell Distribution Width 13 % (10-15); White Blood Count 7.9 10^3/uL (3.5-10.8)
[2022-09-10 04:44] LABS: Magnesium 1.7 mg/dL (1.9-2.7); Phosphorus 1.3 mg/dL (2.5-5.0); eGFR CKD-EPI 18.2 (>60)
[2022-09-10 04:56] LABS: Calcium 6.1 mg/dL (8.6-10.3)
[2022-09-10 05:19] LABS: ABS Lymphocytes 0.9 10^3/ul (1.0-4.8); ABS Monocytes 0.3 10^3/ul (0-0.8); ABS Neutrophils 6.7 10^3/ul (1.5-7.7); Eosinophil % 0.1 %
[2022-09-10 05:56] LABS: Hematocrit 44 % (35-47); Hemoglobin 14.7 g/dL (12.0-16.0); Mean Corpuscular HGB Conc 33 g/dL (31-36); Mean Corpuscular Hemoglobin 32 pg (27-31); Mean Corpuscular Volume 95 fL (80-97); Mean Platelet Volume 10.6 fL (7.4-10.4); Platelet Count 248 10^3/uL (150-450); Red Blood Count 4.67 10^6 /uL (3.70-4.87); Red Cell Distribution Width 13 % (10-15); White Blood Count 10.4 10^3/uL (3.5-10.8)
[2022-09-10 05:57] LABS: ABS Lymphocytes 1.2 10^3/ul (1.0-4.8); ABS Monocytes 0.3 10^3/ul (0-0.8); ABS Neutrophils 8.9 10^3/ul (1.5-7.7); Eosinophil % 0.1 %; Lymphocyte % 11.3 %
[2022-09-10] MEDS: Heparin DRIP 25,000 UNITS BAG 25,000 UNITS/500 ML BAG IV SCH ×2 (06:15→09:57)
[2022-09-10 06:44] LABS: Calcium 7.8 mg/dL (8.6-10.3); eGFR CKD-EPI 13.4 (>60)
[2022-09-10 06:46] LABS: Glucose Confirmatory 446 mg/dL (70-100)
[2022-09-10] MEDS ORDERED: Norepinephrine 16MCG/ML BAG NS 4,000 MCG/250 ML BAG IV SCH ×2 (08:00→08:11)
[2022-09-10] MEDS ORDERED: Acetaminophen IV 1 GM/100ML 1,000 MG/100 ML BAG IV PRN (08:12)
[2022-09-10] MEDS ORDERED: Potassium Phosphate IV 15 MMOLE in NS 0.9% 250 ml 250 ML IVPB ONE (08:15)
[2022-09-10] MEDS ORDERED: Magnesium Sulfate 2 gm BAG 2 GM/50 ML BAG IVPB ONE (08:17)
[2022-09-10] MEDS: levETIRAcetam 500 MG/100 ML IV SCH (08:55)
[2022-09-10] MEDS ORDERED: Pantoprazole VIAL 40 MG VIAL IV SCH (09:00)
[2022-09-10 09:07] LABS: Calcium 6.6 mg/dL (8.6-10.3); Potassium 4.2 mmol/L (3.5-5.0); eGFR CKD-EPI 14.9 (>60)
[2022-09-10] MEDS ORDERED: Norepinephrine 16MCG/ML BAGD5W 4,000 MCG/250 ML BAG IV SCH (09:30)
[2022-09-10] MEDS: Norepinephrine 16MCG/ML BAG NS 4,000 MCG/250 ML BAG IV SCH ×2 (09:47→11:38)
[2022-09-10 11:37] LABS: Potassium 3.6 mmol/L (3.5-5.0); eGFR CKD-EPI 18.2 (>60)
[2022-09-10 12:01] LABS: Calcium 6.1 mg/dL (8.6-10.3)
[2022-09-10] MEDS ORDERED: Calcium Gluconate 2 GM in NS 0.9% 100 ml BAG 100 ML IV ONE (12:41)
[2022-09-10] MEDS ORDERED: KCL 20 MEQ/100 ML IVPREMIX 20 MEQ/100 ML BAG IV SCH (13:00)
[2022-09-10] MEDS ORDERED: NOREPINEPHRINE IV SCH (13:30)
[2022-09-10] MEDS ORDERED: [UNRECOGNIZED DRUG - OTHER] IV SCH (13:30)
[2022-09-10] MEDS ORDERED: Dextrose 50% Syringe 50 ml 25 GM/50 ML SYRINGE IV PUSH PRN (13:48)
[2022-09-10] MEDS ORDERED: Insulin GLARGINE 100 un/ml 10 ml VIAL SUBCUT SCH ×2 (14:00→16:00)
[2022-09-10] MEDS ORDERED: Acetaminophen IV 1 GM/100ML 1,000 MG/100 ML BAG IV ONE (15:06)
[2022-09-10 15:16] LABS: eGFR CKD-EPI 14.2 (>60)
[2022-09-10 15:17] LABS: Potassium 5.1 mmol/L (3.5-5.0)
[2022-09-10 15:18] LABS: Calcium 16.1 mg/dL (8.6-10.3)
[2022-09-10] MEDS ORDERED: Morphine 4 MG/ML VIAL (1 ml) ONE (16:47)
[2022-09-10] MEDS ORDERED: Morphine 4 MG/ML VIAL (1 ml) IV ONE (17:09)
[2022-09-10 20:31] VITALS: BP 91/74
== END 2022-09-10 16:51 | disposition expired ==
LOC: ED 19:45 → EDHOLD 09-09 02:22 → ICU 09-09 03:07
PROVIDERS: ADMIT Surgery Surgical Critical Care; ATTEND Surgery Surgical Critical Care